=== PATIENT | female | born 1945 ===

== ENCOUNTER 2023-08-04 17:44 | Inpatient (IN) | payer MEDICARE, OTHER, SELFPAY ==
[2023-08-04 17:51] VITALS: BMI 39.3
--- NOTE | 2023-08-04 18:46 | PC.ADMIT ---
Patient admitted to S1 at 1755 via stretcher from [facility]. Patient wth PMH of HtN, afib, bradycardia and dementia. Patient anticoagulated with Eliquis. Patient reportedly has been confused for months however noted marked increase in confusion in the last few weeks. Patient has been talking to people who are not there, trying to go to the third floor of the house when there are only 2 floors and was packing to leave house because the people in the house told me I had to. Patient alert and oriented to person, place and time. Able to state she is here for help. Presents as pleasant and cooperative. Dressed in hospital attire. Well groomed. Patient vital signs taken. BP high 200/84. HR at 44. Patient tearful at times due to recent of . Oriented to unit. Med rec done.
[2023-08-04 19:27] VITALS: BP 148/87; PULSE 51; RESP 18; TEMP 36.5; O2SAT 98
[2023-08-04 20:00] VITALS: BP 129/87; PULSE 58; RESP 18; TEMP 36.6; O2SAT 98
[2023-08-04 20:20] LABS: Creatinine Clr Calc Pharmacy 57.3; Estimated Glomerular Filt Rate 55
[2023-08-04] MEDS: Apixaban 5 MG TABLET PO (20:46)
[2023-08-05 08:00] VITALS: BP 131/62; PULSE 59; RESP 18; TEMP 36.4; O2SAT 97
[2023-08-05 08:16] LABS: Estimated Average Glucose 120 mg/dL; Hemoglobin A1C 148.9347 umol/L; Hemoglobin A1c % 5.8 % (<6.0)
[2023-08-05 08:33] LABS: Alanine Aminotransferase 22 U/L (0-31); Albumin Level 4.3 g/dL (3.5-5.0); Alkaline Phosphatase 67 U/L (39-117); Anion Gap 12 (12-20); Aspartate Amino Transferase 22 U/L (5-31); Bilirubin Total 0.8 mg/dL (0.0-1.0); Blood Urea Nitrogen 11 mg/dL (9-16); Calcium 10.7 mg/dL (8.4-10.2); Carbon Dioxide 27 mmol/L (22-29); Chloride 104 mmol/L (96-108); Cholesterol 184 mg/dL (<200); Creatinine Clr Calc Pharmacy 61.7; Estimated Glomerular Filt Rate > 60; Glucose Fasting 110 mg/dL (60-99); HDL Cholesterol 61 mg/dL (>40); LDL Cholesterol Calculated 104 mg/dL (<100); Potassium 4.4 mmol/L (3.3-5.1); Sodium 139 mmol/L (135-145); Total Protein 7.7 g/dL (6.5-8.0); Triglycerides 97 mg/dL (<150)
[2023-08-05] MEDS: Apixaban 5 MG TABLET PO ×2 (08:44→20:34)
[2023-08-05] MEDS: PARoxetine HCL 10 MG TABLET PO (08:44)
[2023-08-05] MEDS: ARIPiprazole 2 MG TABLET PO (08:44)
[2023-08-05] MEDS: Sotalol HCL 80 MG TABLET PO (08:44)
[2023-08-05] MEDS: lisinopriL 5 MG TABLET PO (08:44)
[2023-08-05] MEDS: Spironolactone 25 MG TABLET PO (08:46)
[2023-08-05 08:57] LABS: Folate 3.3 ng/mL (> or = 4.0); Vitamin B12 446 pg/mL (200-900)
--- NOTE | 2023-08-05 09:23 | P.CONHOSP_ITS ---
History of Present Illness Data of Consult Service Date: 08/05/23 Requesting physician: Saravanan Thomason Primary Care Provider: Unknown Physician HPI Reason for consult: Medical H and P 77-year-old female with history of paroxysmal atrial fibrillation anticoagulated with Eliquis on sotalol, hypertension, unspecified dementia admitted to Geriatric Psychiatry from [facility] with consult placed to hospitalist service for medical H&P. While in the ED, hematology studies unremarkable. Renal function baseline, electrolyte levels normal. Ammonia level undetectable. Hepatic function within normal limits. Urinalysis not indicative of infection. Urine tox screen negative. Head CT without acute intracranial abnormality but shows evidence of chronic microvascular disease. EKG shows sinus bradycardia which is noted to be chronic, rate [address]/T-wave abnormalities. She tells me she has been experiencing intermittent right-sided chest pressure but is currently asymptomatic. She has been following with Dr. Lino at [facility] who recently ordered a Holter monitor the patient is unaware of results. Suspect this was likely ordered related to her chronic bradycardia to evaluate for significant pauses. However, patient denies having had any symptoms of lightheadedness, shortness of breath, vision changes, or syncope. She currently has no complaints. Review of Systems 2 Review of Systems: General: No fevers, malaise, unintentional weight loss HEENT: No blurred vision, diplopia. No sore throat, nasal congestion, rhinorrhea, sinus pain, ear pain Cardiovascular: No chest pain, palpitations, or leg edema Respiratory: No shortness of breath, wheezing, cough GI: No abdominal pain, nausea, vomiting, diarrhea, constipation, melena, hematochezia : No dysuria, hematuria, increased urinary frequency, decreased urinary output MSK: No myalgia, back pain Neuro: No headaches, weakness, paresthesias Skin: No rashes or lesions [facility] Medical History Dementia Hypertension Chronic anticoagulation Atrial fibrillation Social History Currently Displaying Signs/Symptoms of Drug Intoxication Withdrawal: No Advance Directives: No Advance Directives Information Provided: Yes Do you have thoughts of harming others: None Do you have a plan to hurt others: No Plan Meds Allergies Allergy/AdvReac Type Severity Reaction Status Date / Time latex AdvReac Unknown Verified 08/04/23 17:51 levofloxacin AdvReac Unknown Verified 08/04/23 17:51 Sulfa (Sulfonamide AdvReac Unknown Verified 08/04/23 17:51 Antibiotics) Active Medications: Current Medications Acetaminophen (Acetaminophen 325 Mg Tablet) 650 mg PO Q6H PRN PRN Reason: Headache/Pain Mild Scale (1-3) Al Hydroxide/Mg Hydroxide (Magnesium Hydrox/Alum Hydrox 30 Ml Oral.Susp) 30 ml PO Q6H PRN PRN Reason: Heartburn/Nausea Apixaban (Apixaban 5 Mg Tablet) 5 mg PO BID [facility] Last Admin: 08/05/23 08:44 Dose: 5 mg Aripiprazole (Aripiprazole 2 Mg Tablet) 2 mg PO DAILY [facility] Last Admin: 08/05/23 08:44 Dose: 2 mg Lisinopril (Lisinopril 5 Mg Tablet) 5 mg PO DAILY [facility]; Protocol Last Admin: 08/05/23 08:44 Dose: 5 mg Magnesium Hydroxide (Milk Of Magnesia 30 Ml Oral.Susp) 30 ml PO DAILY PRN PRN Reason: Constipation Paroxetine HCl (Paroxetine Hcl 10 Mg Tablet) 10 mg PO DAILY [facility] Last Admin: 08/05/23 08:44 Dose: 10 mg Sotalol HCl (Sotalol Hcl 80 Mg Tablet) 80 mg PO DAILY@0800 [facility] Last Admin: 08/05/23 08:44 Dose: 80 mg Spironolactone (Spironolactone 25 Mg Tablet) 25 mg PO DAILY [facility]; Protocol Last Admin: 08/05/23 08:46 Dose: 25 mg Trazodone HCl (Trazodone Hcl 50 Mg Tablet) 50 mg PO BEDTIME MRX1 PRN PRN Reason: Insomnia Home Medications ?Medication ?Instructions ?Recorded ?Confirmed ?Last Taken ?Type Abilify 2 mg PO 1XD 08/04/23 08/04/23 08/03/23 21:00 History 2 mg apixaban 5 mg tablet (Eliquis) 5 mg PO BID 08/04/23 08/04/23 08/04/23 09:00 History lisinopril 5 mg tablet 5 mg PO DAILY 08/04/23 08/04/23 08/04/23 09:00 History 5 mg paroxetine HCl 10 mg tablet 10 mg PO DAILY 08/04/23 08/04/23 08/04/23 09:00 History sotalol 80 mg tablet 80 mg PO DAILY 08/04/23 08/04/23 08/04/23 09:00 History spironolactone 25 mg tablet 25 mg PO DAILY 08/04/23 08/04/23 08/04/23 09:00 History Physical Exam 2 Vital Signs and Narrative: Vital Signs: Last Vital Signs Temp 97.9 F 08/04/23 20:00 Pulse 58 08/04/23 20:00 Resp 18 08/04/23 20:00 BP 129/87 08/04/23 20:00 Pulse Ox 98 08/04/23 20:00 O2 Del Method Room Air 08/04/23 20:00 BMI result Body Mass Index 39.3 Constitutional - Awake and Alert, No apparent distress Eyes - PERRLA, EOMI Cardiovascular - S1S2, RRR, No edema Respiratory - Normal lung expansion, Normal respiratory effort, No respiratory distress, CTA bilaterally Gastrointestinal - NT / ND; +BS; No rebound or guarding - No CVA tenderness Extremities - no calf tenderness bilaterally, no swelling Musculoskeletal - Normal inspection, normal ROM Skin - Warm/Dry Neurological - Alert & oriented x3, CN II-XII in tact, 5/5 strength BUE and BLE Psychological - Appropriate affect Results Labs 08/05/23 08:03 Labs: Laboratory Results - last 24 hr 08/04/23 08/05/23 19:57 08:03 Anion Gap 12 Estim Creat Clear Calc 57.3 61.7 Estimated GFR 55 > 60 Fasting Glucose 110 H Estimat Average Glucose 120 Hemoglobin A1c % 5.8 Calcium 10.7 H Total Bilirubin 0.8 AST 22 ALT 22 Alkaline Phosphatase 67 Total Protein 7.7 Albumin 4.3 Triglycerides 97 Cholesterol 184 LDL Cholesterol, Calc 104 H HDL Cholesterol 61 Vitamin B12 446 Folate 3.3 L TSH 1.50 Assessment and Plan (1) Routine medical exam: Status: Acute Plan 77-year-old female with history of paroxysmal atrial fibrillation anticoagulated with Eliquis on sotalol, hypertension, unspecified dementia admitted to Geriatric Psychiatry from [facility] with consult placed to hospitalist service for medical H&P. #Mood disorder/dementia/grief -plan per Psychiatry # paroxysmal atrial fibrillation -chronic bradycardia-asymptomatic -continue sotalol for rhythm control -continue Eliquis for anticoagulation # chronic bradycardia -recently had Holter monitor performed by [facility] -mild, asymtomatic, continue sotalol #htn -bp controlled -continue lisinopril, spironolactone #Chronic intermittent chest pain -follows with PVC, no known history of CAD/MD -EKG without acute changes, currently asymtomatic -no intervention recommended at this time unless patient develops symptoms- notify hospitalist -continue eliquis Thank you for allowing me to participate in this consult. Signing off at this time. Please do not hesitate to call for further questions or for abdelrahman cute medical issues.
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
[2023-08-05 20:00] VITALS: BP 138/63; PULSE 53; RESP 16; TEMP 36.1; O2SAT 97
[2023-08-06 08:00] VITALS: BP 124/56; PULSE 65; RESP 18; TEMP 36.1; O2SAT 98
[2023-08-06] MEDS: Spironolactone 25 MG TABLET PO (08:35)
[2023-08-06] MEDS: ARIPiprazole 2 MG TABLET PO (08:35)
[2023-08-06] MEDS: Apixaban 5 MG TABLET PO ×2 (08:36→21:14)
[2023-08-06] MEDS: PARoxetine HCL 10 MG TABLET PO (08:36)
[2023-08-06] MEDS: lisinopriL 5 MG TABLET PO (08:36)
[2023-08-06] MEDS: Sotalol HCL 80 MG TABLET PO (08:36)
[2023-08-06] MEDS: risperiDONE 0.5 MG TABLET PO (14:42)
--- NOTE | 2023-08-06 14:51 | HO.PSYCHPN ---
Subjective Subjective Date of Service: 08/06/23 Reason For Visit: Unspecified anxiety disorder Subjective Notes: Conditional Voluntary Interim History: Pt slept through the night. she continues to present with some paranoid ideas and asks this jingle writer to speak softly as she is worried others may here as she is not sure she is safe here. No SI/HI. She friendly with roommate. visible on the unit. no behavioral concerns. Review of Systems Review of Systems Pt denies chest pain, any pain. No GI symptoms- no diarrhea, no constipation, denies abdominal pain Mental Status Exam Mental Status Exam Narrative: Appearance: wearing casual clothing, good hygiene, in NAD Behavior: cooperative and pleasant Psychomotor: no agitation or retardation noted Speech: clear, normal rate/rhythm/volume, spontaneous TP: some derailment, noted difficulty finding words TC: feeling safer here Mood: okay Affect: congruent, appropriately tearful when talking about her SI: denies HI: denies VH/AH: hearing voices of woman Delusions: paranoid delusions Insight/judgment: impaired x 2. memory/cog: alert, oriented to place, not so much as situation, not to month or year. Diagnostics Vital Signs (24Hr): Vital Signs - 24 hr 08/05/23 20:00 08/06/23 08:00 Temperature 96.9 F 97.0 F Pulse Rate 53 65 Respiratory Rate 16 18 Blood Pressure 138/63 124/56 L Pulse Oximetry 97 98 Oxygen Delivery Method Room Air Room Air BMI result Body Mass Index 39.3 Labs 08/05/23 08:03 Labs: Laboratory Results - last 48 hr 08/04/23 08/05/23 19:57 08:03 Sodium 139 Potassium 4.4 Chloride 104 Carbon Dioxide 27 Anion Gap 12 BUN 11 Creatinine 0.98 0.91 Estim Creat Clear Calc 57.3 61.7 Estimated GFR 55 > 60 Fasting Glucose 110 H Estimat Average Glucose 120 Hemoglobin A1c % 5.8 Calcium 10.7 H Total Bilirubin 0.8 AST 22 ALT 22 Alkaline Phosphatase 67 Total Protein 7.7 Albumin 4.3 Triglycerides 97 Cholesterol 184 LDL Cholesterol, Calc 104 H HDL Cholesterol 61 Vitamin B12 446 Folate 3.3 L TSH 1.50 Medications Medications Current Medications Acetaminophen (Acetaminophen 325 Mg Tablet) 650 mg PO Q6H PRN PRN Reason: Headache/Pain Mild Scale (1-3) Al Hydroxide/Mg Hydroxide (Magnesium Hydrox/Alum Hydrox 30 Ml Oral.Susp) 30 ml PO Q6H PRN PRN Reason: Heartburn/Nausea Apixaban (Apixaban 5 Mg Tablet) 5 mg PO BID [facility] Last Admin: 08/06/23 08:36 Dose: 5 mg Lisinopril (Lisinopril 5 Mg Tablet) 5 mg PO DAILY [facility]; Protocol Last Admin: 08/06/23 08:36 Dose: 5 mg Magnesium Hydroxide (Milk Of Magnesia 30 Ml Oral.Susp) 30 ml PO DAILY PRN PRN Reason: Constipation Paroxetine HCl (Paroxetine Hcl 10 Mg Tablet) 10 mg PO DAILY [facility] Last Admin: 08/06/23 08:36 Dose: 10 mg Risperidone (Risperidone 0.5 Mg Tablet) 0.5 mg PO BID [facility] Last Admin: 08/06/23 14:42 Dose: 0.5 mg Sotalol HCl (Sotalol Hcl 80 Mg Tablet) 80 mg PO DAILY@0800 [facility] Last Admin: 08/06/23 08:36 Dose: 80 mg Spironolactone (Spironolactone 25 Mg Tablet) 25 mg PO DAILY [facility]; Protocol Last Admin: 08/06/23 08:35 Dose: 25 mg Trazodone HCl (Trazodone Hcl 50 Mg Tablet) 50 mg PO BEDTIME MRX1 PRN PRN Reason: Insomnia Allergies Allergies Allergy/AdvReac Type Severity Reaction Status Date / Time latex AdvReac Unknown Verified 08/04/23 17:51 levofloxacin AdvReac Unknown Verified 08/04/23 17:51 Sulfa (Sulfonamide AdvReac Unknown Verified 08/04/23 17:51 Antibiotics) Assessment & Plan Assessment & Plan (1) Major neurocognitive disorder: Status: Acute Code(s): F03.90 - Unspecified dementia, unspecified severity, without behavioral disturbance, psychotic disturbance, mood disturbance, and anxiety Plan Mrs. Haddad is a 77 year-old woman with dementia, appears alzheimer's type or mixed etiology. Pt was brought to [facility] ED due to increase visual and auditory hallucinatinos of woman telling her to go places and paranoid ideas. Unfortunately, after pt was brought to ED, her and HCP unexpectedly at home. Her brother, Adam ([phone]) who is very familiar with her situation, can be her new HCP and pt does show understanding/capacity to appoint HCP. She continues to present with some paranoid delusions, AH. May consider switching abilify to risperidone as it may be more effective in targeting symptoms. PLAN 1. will try risperidone 1mg po BID. demetrius cortez Reason for continued inpatient stay Substantial Risk for: inability to function Time Spent With Patient Time: Total time managing care of this patient today ____ minutes.
[2023-08-06 20:00] VITALS: BP 125/58; PULSE 100; RESP 18; TEMP 36.1; O2SAT 97
[2023-08-07 08:50] VITALS: BP 136/60; PULSE 54; RESP 14; TEMP 35.7; O2SAT 95
[2023-08-07] MEDS: PARoxetine HCL 10 MG TABLET PO (08:50)
[2023-08-07] MEDS: Spironolactone 25 MG TABLET PO (08:50)
[2023-08-07] MEDS: risperiDONE 0.5 MG TABLET PO ×2 (08:50→20:01)
[2023-08-07] MEDS: Apixaban 5 MG TABLET PO ×2 (08:50→20:01)
[2023-08-07] MEDS: Sotalol HCL 80 MG TABLET PO (08:51)
[2023-08-07] MEDS: lisinopriL 5 MG TABLET PO (08:51)
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
[2023-08-07 20:00] VITALS: BP 136/63; PULSE 61; RESP 18; TEMP 36.3; O2SAT 97
[2023-08-08 08:12] VITALS: BP 127/60; PULSE 61; RESP 16; TEMP 36.5; O2SAT 98
[2023-08-08] MEDS: Sotalol HCL 80 MG TABLET PO (08:13)
[2023-08-08] MEDS: lisinopriL 5 MG TABLET PO (08:13)
[2023-08-08] MEDS: PARoxetine HCL 10 MG TABLET PO (08:13)
[2023-08-08] MEDS: Apixaban 5 MG TABLET PO ×2 (08:16→20:31)
[2023-08-08] MEDS: Spironolactone 25 MG TABLET PO (08:16)
[2023-08-08] MEDS: risperiDONE 0.5 MG TABLET PO ×2 (08:16→20:31)
--- NOTE | 2023-08-08 10:11 | P.PNPSI_ITS ---
Subjective Subjective Date of Service: 08/08/23 Reason For Visit: Unspecified anxiety disorder Subjective Notes: Conditional Voluntary Healthcare Proxy: Yes Interim History: Pt slept through the night. Pt without combative or aggressive behaviors. She presents slightly less paranoid and suspicious, yesterday pt was reporting someone tried to kidnap her and she was worried about who could hear her. She denies SI/HI She is appropriately tearful about recent of . MOCA , ACL 3.4 severe cognitive impairment. Medication Compliance: Yes Review of Systems Review of Systems Pt denies chest pain, any pain. No GI symptoms- no diarrhea, no constipation, denies abdominal pain Mental Status Exam Mental Status Exam Narrative: Appearance: wearing casual clothing, good hygiene, in NAD Behavior: cooperative and pleasant Psychomotor: no agitation or retardation noted Speech: clear, normal rate/rhythm/volume, spontaneous TP: some derailment, noted difficulty finding words TC: feeling safer here Mood: okay Affect: congruent, appropriately tearful when talking about her SI: denies HI: denies VH/AH: hearing voices of woman Delusions: paranoid delusions Insight/judgment: impaired x 2. memory/cog: alert, oriented to place, month, year, not so much situation. MOCA on 08/08/23 most impairments in executive function, language fluency, abstraction, attention, language repetition. Diagnostics Vital Signs (24Hr): Vital Signs - 24 hr 08/07/23 20:00 08/08/23 08:12 Temperature 97.3 F 97.7 F Pulse Rate 61 61 Respiratory Rate 18 16 Blood Pressure 136/63 127/60 Pulse Oximetry 97 98 Oxygen Delivery Method Room Air Room Air BMI result Body Mass Index 39.3 Labs 08/05/23 08:03 Medications Medications Current Medications Acetaminophen (Acetaminophen 325 Mg Tablet) 650 mg PO Q6H PRN PRN Reason: Headache/Pain Mild Scale (1-3) Al Hydroxide/Mg Hydroxide (Magnesium Hydrox/Alum Hydrox 30 Ml Oral.Susp) 30 ml PO Q6H PRN PRN Reason: Heartburn/Nausea Apixaban (Apixaban 5 Mg Tablet) 5 mg PO BID [facility] Last Admin: 08/08/23 08:16 Dose: 5 mg Lisinopril (Lisinopril 5 Mg Tablet) 5 mg PO DAILY [facility]; Protocol Last Admin: 08/08/23 08:13 Dose: 5 mg Magnesium Hydroxide (Milk Of Magnesia 30 Ml Oral.Susp) 30 ml PO DAILY PRN PRN Reason: Constipation Paroxetine HCl (Paroxetine Hcl 10 Mg Tablet) 10 mg PO DAILY [facility] Last Admin: 08/08/23 08:13 Dose: 10 mg Risperidone (Risperidone 0.5 Mg Tablet) 0.5 mg PO BID [facility] Last Admin: 08/08/23 08:16 Dose: 0.5 mg Sotalol HCl (Sotalol Hcl 80 Mg Tablet) 80 mg PO DAILY@0800 [facility] Last Admin: 08/08/23 08:13 Dose: 80 mg Spironolactone (Spironolactone 25 Mg Tablet) 25 mg PO DAILY [facility]; Protocol Last Admin: 08/08/23 08:16 Dose: 25 mg Trazodone HCl (Trazodone Hcl 50 Mg Tablet) 50 mg PO BEDTIME MRX1 PRN PRN Reason: Insomnia Allergies Allergies Allergy/AdvReac Type Severity Reaction Status Date / Time latex AdvReac Unknown Verified 08/04/23 17:51 levofloxacin AdvReac Unknown Verified 08/04/23 17:51 Sulfa (Sulfonamide AdvReac Unknown Verified 08/04/23 17:51 Antibiotics) Assessment & Plan Assessment & Plan (1) Major neurocognitive disorder: Status: Acute Code(s): F03.90 - Unspecified dementia, unspecified severity, without behavioral disturbance, psychotic disturbance, mood disturbance, and anxiety Plan Mrs. Haddad is a 77 year-old woman with dementia, appears alzheimer's type or mixed etiology. Pt was brought to [facility] ED due to increase visual and auditory hallucinatinos of woman telling her to go places and paranoid ideas. Unfortunately, after pt was brought to ED, her and HCP unexpectedly at home. Her brother, Adam ([phone]) who is very familiar with her situation, can be her new HCP and pt does show understanding/capacity to appoint HCP. She continues to present with some paranoid delusions, AH. May consider switching abilify to risperidone as it may be more effective in targeting symptoms. PLAN 1. continue risperidone 1mg po BID. Reason for continued inpatient stay Substantial Risk for: inability to function Time Spent With Patient Time: Total time managing care of this patient today ____ minutes.
[2023-08-08 20:00] VITALS: BP 129/71; PULSE 60; RESP 16; TEMP 36.3; O2SAT 99
--- NOTE | 2023-08-09 | ECG_ITS ---
Test Reason : palpitations Blood Pressure : / mmHG Vent. Rate : 046 BPM Atrial Rate : 046 BPM P-R Int : 154 ms QRS Dur : 088 ms QT Int : 420 ms P-R-T Axes : 045 004 016 degrees QTc Int : 367 ms Sinus bradycardia Otherwise normal ECG No previous ECGs available Referred By: Jaci Zavala Electronically Signed By:LYNN BURDEN
[2023-08-09 08:00] VITALS: BP 160/72; PULSE 64; RESP 18; TEMP 34; O2SAT 18
[2023-08-09] MEDS: Spironolactone 25 MG TABLET PO (08:13)
[2023-08-09] MEDS: Apixaban 5 MG TABLET PO ×2 (08:14→20:10)
[2023-08-09] MEDS: risperiDONE 0.5 MG TABLET PO ×3 (08:14→20:10)
[2023-08-09] MEDS: lisinopriL 5 MG TABLET PO (08:14)
[2023-08-09] MEDS: PARoxetine HCL 10 MG TABLET PO (08:14)
[2023-08-09] MEDS: Sotalol HCL 80 MG TABLET PO (08:14)
--- NOTE | 2023-08-09 09:09 | HO.PSYCHPN ---
Subjective Subjective Date of Service: 08/09/23 Reason For Visit: Unspecified anxiety disorder Subjective Notes: Conditional Voluntary Interim History: pt slept most of the night. Pt presents as more paranoid stating that there is a family here that is trying to kidnap her. She appears more anxious and fearful. She is eating well. Visible on the unit, social with select peers. No behavioral concerns. Meeting with her brother to discuss advanced dementia, need for 24/7 care. Will increase risperidone for psychosis and paranoia. Diagnostics Vital Signs (24Hr): Vital Signs - 24 hr 08/08/23 20:00 08/09/23 08:00 Temperature 97.4 F 93.2 F L Pulse Rate 60 64 Respiratory Rate 16 18 Blood Pressure 129/71 160/72 H Pulse Oximetry 99 18 L Oxygen Delivery Method Room Air Room Air BMI result Body Mass Index 39.3 Labs 08/05/23 08:03 Medications Medications Current Medications Acetaminophen (Acetaminophen 325 Mg Tablet) 650 mg PO Q6H PRN PRN Reason: Headache/Pain Mild Scale (1-3) Al Hydroxide/Mg Hydroxide (Magnesium Hydrox/Alum Hydrox 30 Ml Oral.Susp) 30 ml PO Q6H PRN PRN Reason: Heartburn/Nausea Apixaban (Apixaban 5 Mg Tablet) 5 mg PO BID [facility] Last Admin: 08/09/23 08:14 Dose: 5 mg Lisinopril (Lisinopril 5 Mg Tablet) 5 mg PO DAILY [facility]; Protocol Last Admin: 08/09/23 08:14 Dose: 5 mg Magnesium Hydroxide (Milk Of Magnesia 30 Ml Oral.Susp) 30 ml PO DAILY PRN PRN Reason: Constipation Paroxetine HCl (Paroxetine Hcl 10 Mg Tablet) 10 mg PO DAILY [facility] Last Admin: 08/09/23 08:14 Dose: 10 mg Risperidone (Risperidone 0.5 Mg Tablet) 0.5 mg PO BID [facility] Last Admin: 08/09/23 08:14 Dose: 0.5 mg Sotalol HCl (Sotalol Hcl 80 Mg Tablet) 80 mg PO DAILY@0800 [facility] Last Admin: 08/09/23 08:14 Dose: 80 mg Spironolactone (Spironolactone 25 Mg Tablet) 25 mg PO DAILY [facility]; Protocol Last Admin: 08/09/23 08:13 Dose: 25 mg Trazodone HCl (Trazodone Hcl 50 Mg Tablet) 50 mg PO BEDTIME MRX1 PRN PRN Reason: Insomnia Allergies Allergies Allergy/AdvReac Type Severity Reaction Status Date / Time latex AdvReac Unknown Verified 08/04/23 17:51 levofloxacin AdvReac Unknown Verified 08/04/23 17:51 Sulfa (Sulfonamide AdvReac Unknown Verified 08/04/23 17:51 Antibiotics) Assessment & Plan Assessment & Plan (1) Major neurocognitive disorder: Status: Acute Code(s): F03.90 - Unspecified dementia, unspecified severity, without behavioral disturbance, psychotic disturbance, mood disturbance, and anxiety Plan Mrs. Haddad is a 77 year-old woman with dementia, appears alzheimer's type or mixed etiology. Pt was brought to [facility] ED due to increase visual and auditory hallucinatinos of woman telling her to go places and paranoid ideas. Unfortunately, after pt was brought to ED, her and HCP unexpectedly at home. Her brother, Adam ([phone]) who is very familiar with her situation, can be her new HCP and pt does show understanding/capacity to appoint HCP. She continues to present with some paranoid delusions, AH. May consider switching abilify to risperidone as it may be more effective in targeting symptoms. PLAN 1. Increase risperidone 1mg po TID. Reason for continued inpatient stay Substantial Risk for: inability to function Time Spent With Patient Time: Total time managing care of this patient today ____ minutes.
[2023-08-09 12:05] VITALS: BP 113/66; PULSE 55; RESP 18; TEMP 36.4; O2SAT 100
[2023-08-09 20:00] VITALS: BP 125/58; PULSE 60; RESP 18; TEMP 36.6; O2SAT 96
[2023-08-10 07:00] VITALS: BMI 38.4
[2023-08-10 08:17] VITALS: BP 140/65; PULSE 54; RESP 18; TEMP 36.1; O2SAT 98
[2023-08-10] MEDS: Apixaban 5 MG TABLET PO ×2 (08:36→20:53)
[2023-08-10] MEDS: risperiDONE 0.5 MG TABLET PO ×3 (08:36→20:53)
[2023-08-10] MEDS: lisinopriL 5 MG TABLET PO (08:36)
[2023-08-10] MEDS: Sotalol HCL 80 MG TABLET PO (08:36)
[2023-08-10] MEDS: Spironolactone 25 MG TABLET PO (08:36)
--- NOTE | 2023-08-10 09:16 | HO.PSYCHPN ---
Subjective Subjective Date of Service: 08/10/23 Reason For Visit: Unspecified anxiety disorder Subjective Notes: Conditional Voluntary Interim History: pt slept most of the night. Pt continues to report that family is trying to kidnap her and someone had sent a car for her to get in. She is whispering at times. No SI/HI. she is visible on the unit, no behavioral concerns. Review of Systems Review of Systems Pt denies chest pain, any pain. No GI symptoms- no diarrhea, no constipation, denies abdominal pain Mental Status Exam Mental Status Exam Narrative: Appearance: wearing casual clothing, good hygiene, in NAD Behavior: cooperative and pleasant Psychomotor: no agitation or retardation noted Speech: clear, normal rate/rhythm/volume, spontaneous TP: some derailment, noted difficulty finding words TC: feeling safer here Mood: okay Affect: congruent, appropriately tearful when talking about her SI: denies HI: denies VH/AH: hearing voices of woman Delusions: paranoid delusions Insight/judgment: impaired x 2. memory/cog: alert, oriented to place, month, year, not so much situation. MOCA on 08/08/23 most impairments in executive function, language fluency, abstraction, attention, language repetition. Diagnostics Vital Signs (24Hr): Vital Signs - 24 hr 08/09/23 12:05 08/09/23 20:00 08/10/23 08:17 Temperature 97.5 F 97.9 F 97.0 F Pulse Rate 55 60 54 Respiratory Rate 18 18 18 Blood Pressure 113/66 125/58 L 140/65 H Pulse Oximetry 100 96 98 Oxygen Delivery Method Room Air Room Air Room Air BMI result Body Mass Index 39.3 Labs 08/05/23 08:03 Medications Medications Current Medications Acetaminophen (Acetaminophen 325 Mg Tablet) 650 mg PO Q6H PRN PRN Reason: Headache/Pain Mild Scale (1-3) Al Hydroxide/Mg Hydroxide (Magnesium Hydrox/Alum Hydrox 30 Ml Oral.Susp) 30 ml PO Q6H PRN PRN Reason: Heartburn/Nausea Apixaban (Apixaban 5 Mg Tablet) 5 mg PO BID [facility] Last Admin: 08/10/23 08:36 Dose: 5 mg Lisinopril (Lisinopril 5 Mg Tablet) 5 mg PO DAILY [facility]; Protocol Last Admin: 08/10/23 08:36 Dose: 5 mg Magnesium Hydroxide (Milk Of Magnesia 30 Ml Oral.Susp) 30 ml PO DAILY PRN PRN Reason: Constipation Risperidone (Risperidone 0.5 Mg Tablet) 0.5 mg PO TID [facility] Last Admin: 08/10/23 08:36 Dose: 0.5 mg Sotalol HCl (Sotalol Hcl 80 Mg Tablet) 80 mg PO DAILY@0800 [facility] Last Admin: 08/10/23 08:36 Dose: 80 mg Spironolactone (Spironolactone 25 Mg Tablet) 25 mg PO DAILY [facility]; Protocol Last Admin: 08/10/23 08:36 Dose: 25 mg Trazodone HCl (Trazodone Hcl 50 Mg Tablet) 50 mg PO BEDTIME MRX1 PRN PRN Reason: Insomnia Allergies Allergies Allergy/AdvReac Type Severity Reaction Status Date / Time latex AdvReac Unknown Verified 08/04/23 17:51 levofloxacin AdvReac Unknown Verified 08/04/23 17:51 Sulfa (Sulfonamide AdvReac Unknown Verified 08/04/23 17:51 Antibiotics) Assessment & Plan Assessment & Plan (1) Major neurocognitive disorder: Status: Acute Code(s): F03.90 - Unspecified dementia, unspecified severity, without behavioral disturbance, psychotic disturbance, mood disturbance, and anxiety Plan Mrs. Haddad is a 77 year-old woman with dementia, appears alzheimer's type or mixed etiology. Pt was brought to [facility] ED due to increase visual and auditory hallucinatinos of woman telling her to go places and paranoid ideas. Unfortunately, after pt was brought to ED, her and HCP unexpectedly at home. Her brother, Adam ([phone]) who is very familiar with her situation, can be her new HCP and pt does show understanding/capacity to appoint HCP. She continues to present with some paranoid delusions, AH. May consider switching abilify to risperidone as it may be more effective in targeting symptoms. PLAN 1. continue risperidone 0.5mg po TID. Reason for continued inpatient stay Substantial Risk for: inability to function Time Spent With Patient Time: Total time managing care of this patient today ____ minutes.
[2023-08-10 20:00] VITALS: BP 130/62; PULSE 59; RESP 18; TEMP 36; O2SAT 99
[2023-08-10] MEDS: traZODone HCL 50 MG TABLET PO (20:53)
[2023-08-11 08:23] VITALS: BP 128/62; PULSE 54; RESP 17; TEMP 36.3; O2SAT 99
[2023-08-11 08:26] VITALS: BP 128/62
[2023-08-11] MEDS: risperiDONE 0.5 MG TABLET PO ×3 (08:26→20:57)
[2023-08-11] MEDS: Apixaban 5 MG TABLET PO ×2 (08:26→20:57)
[2023-08-11] MEDS: lisinopriL 5 MG TABLET PO (08:26)
[2023-08-11 08:27] VITALS: BP 128/62
[2023-08-11] MEDS: Sotalol HCL 80 MG TABLET PO (08:27)
[2023-08-11] MEDS: Spironolactone 25 MG TABLET PO (08:27)
[2023-08-11 20:00] VITALS: BP 138/80; PULSE 52; RESP 18; TEMP 36; O2SAT 99
[2023-08-12 08:00] VITALS: BP 128/61; PULSE 57; RESP 18; TEMP 36.5; O2SAT 95
[2023-08-12 08:57] VITALS: BP 128/61
[2023-08-12] MEDS: risperiDONE 0.5 MG TABLET PO ×3 (08:57→20:26)
[2023-08-12] MEDS: Sotalol HCL 80 MG TABLET PO (08:57)
[2023-08-12] MEDS: lisinopriL 5 MG TABLET PO (08:57)
[2023-08-12] MEDS: Spironolactone 25 MG TABLET PO (08:57)
[2023-08-12] MEDS: Apixaban 5 MG TABLET PO ×2 (08:58→20:26)
--- NOTE | 2023-08-12 10:05 | P.PNPSI_ITS ---
Subjective Subjective Date of Service: 08/12/23 Reason For Visit: Unspecified anxiety disorder Subjective Notes: Conditional Voluntary Interim History: The nursing staff reported the patient had been common pleasant, she denies auditory or visual hallucinations. Her brother visited yesterday and apparently he reported the patient still hearing voices but she denies it. She had been social, attended to groups, slept 7 hours. On interview the patient denies auditory hallucinations but she looks internally preoccupied. Mental Status Exam Mental Status Exam Patient Appearance: Appropriate Patient Orientation: Person and Situation Level of Consciousness: Awake Patient Behavior: Guarded Mood Description: Withdrawn Affect Description: Constricted Patient Cognition Impaired: Yes Ability to Follow Directions: Good Speech Pattern: Clear Hallucinations: Auditory Delusions: Ideas of Reference Thought Process: Distracted and Slowed Thinking Thought Content: positive for [place] and positive for Poverty of Content Judgement: Poor Diagnostics Vital Signs (24Hr): Vital Signs - 24 hr 08/11/23 20:00 08/12/23 08:00 08/12/23 08:57 Temperature 96.8 F 97.7 F Pulse Rate 52 57 Respiratory Rate 18 18 Blood Pressure 138/80 128/61 128/61 Pulse Oximetry 99 95 Oxygen Delivery Method Room Air Room Air 08/12/23 08:57 Temperature Pulse Rate Respiratory Rate Blood Pressure 128/61 Pulse Oximetry Oxygen Delivery Method BMI result Body Mass Index 38.4 Labs 08/05/23 08:03 Medications Medications Current Medications Acetaminophen (Acetaminophen 325 Mg Tablet) 650 mg PO Q6H PRN PRN Reason: Headache/Pain Mild Scale (1-3) Al Hydroxide/Mg Hydroxide (Magnesium Hydrox/Alum Hydrox 30 Ml Oral.Susp) 30 ml PO Q6H PRN PRN Reason: Heartburn/Nausea Apixaban (Apixaban 5 Mg Tablet) 5 mg PO BID [facility] Last Admin: 08/12/23 08:58 Dose: 5 mg Lisinopril (Lisinopril 5 Mg Tablet) 5 mg PO DAILY [facility]; Protocol Last Admin: 08/12/23 08:57 Dose: 5 mg Magnesium Hydroxide (Milk Of Magnesia 30 Ml Oral.Susp) 30 ml PO DAILY PRN PRN Reason: Constipation Risperidone (Risperidone 0.5 Mg Tablet) 0.5 mg PO TID [facility] Last Admin: 08/12/23 08:57 Dose: 0.5 mg Sotalol HCl (Sotalol Hcl 80 Mg Tablet) 80 mg PO DAILY@0800 [facility] Last Admin: 08/12/23 08:57 Dose: 80 mg Spironolactone (Spironolactone 25 Mg Tablet) 25 mg PO DAILY [facility]; Protocol Last Admin: 08/12/23 08:57 Dose: 25 mg Trazodone HCl (Trazodone Hcl 50 Mg Tablet) 50 mg PO BEDTIME MRX1 PRN PRN Reason: Insomnia Last Admin: 08/10/23 20:53 Dose: 50 mg Allergies Allergies Allergy/AdvReac Type Severity Reaction Status Date / Time latex AdvReac Unknown Verified 08/04/23 17:51 levofloxacin AdvReac Unknown Verified 08/04/23 17:51 Sulfa (Sulfonamide AdvReac Unknown Verified 08/04/23 17:51 Antibiotics) Assessment & Plan Assessment & Plan (1) Major neurocognitive disorder: Status: Acute Code(s): F03.90 - Unspecified dementia, unspecified severity, without behavioral disturbance, psychotic disturbance, mood disturbance, and anxiety Plan Mrs. Haddad is a 77 year-old woman with dementia, appears alzheimer's type or mixed etiology. Pt was brought to [facility] ED due to increase visual and auditory hallucinatinos of woman telling her to go places and paranoid ideas. Unfortunately, after pt was brought to ED, her and HCP unexpectedly at home. Her brother, Adam ([phone]) who is very familiar with her situation, can be her new HCP and pt does show understanding/capacity to appoint HCP. She continues to present with some paranoid delusions, AH. May consider switching abilify to risperidone as it may be more effective in targeting symptoms. PLAN 1. continue risperidone 0.5mg po TID. 2. Continue with same treatment Reason for continued inpatient stay Substantial Risk for: inability to function, rapid decompensation and med/psych decompensation Time Spent With Patient Time: Total time managing care of this patient today __20__ minutes.
[2023-08-12] MEDS: OLANZapine 5 MG TABLET PO (16:42)
--- NOTE | 2023-08-12 16:51 | PC.NURSE ---
Patient reported anxiety and was noted to be tearful stating, I didn't mean to kill the babies. Provider notified. 5 mg Zyprexa administered. Effect pending.
[2023-08-12 20:00] VITALS: PULSE 68; RESP 18; TEMP 36.8; O2SAT 99
[2023-08-12] MEDS: traZODone HCL 50 MG TABLET PO (20:26)
[2023-08-12 20:35] VITALS: BP 108/53; PULSE 52
[2023-08-13 08:00] VITALS: BP 137/61; PULSE 67; RESP 18; TEMP 36.3; O2SAT 98
[2023-08-13 08:19] VITALS: BP 137/61
[2023-08-13] MEDS: risperiDONE 0.5 MG TABLET PO ×3 (08:19→20:23)
[2023-08-13] MEDS: Spironolactone 25 MG TABLET PO (08:19)
[2023-08-13 08:20] VITALS: BP 137/61
[2023-08-13] MEDS: Sotalol HCL 80 MG TABLET PO (08:20)
[2023-08-13] MEDS: lisinopriL 5 MG TABLET PO (08:20)
[2023-08-13] MEDS: Apixaban 5 MG TABLET PO ×2 (08:20→20:23)
--- NOTE | 2023-08-13 09:55 | HO.PSYCHPN ---
Subjective Subjective Date of Service: 08/13/23 Reason For Visit: Unspecified anxiety disorder Subjective Notes: Conditional Voluntary Interim History: The nursing staff reported the patient had been calm in the morning, she had been medication compliant. She denies auditory hallucinations but she was seen by the staff speaking to herself. She slept all night. On interview the patient denies auditory hallucinations. Mental Status Exam Mental Status Exam Patient Appearance: Appropriate Patient Orientation: Person Level of Consciousness: Awake Patient Behavior: Guarded and Cooperative Mood Description: Withdrawn Affect Description: Constricted Patient Cognition Impaired: Yes Ability to Follow Directions: Good Speech Pattern: Clear Hallucinations: None Delusions: Paranoid Ideation and Ideas of Reference Thought Process: Distracted and Slowed Thinking Thought Content: positive for [place] and positive for Circumstantial Judgement: Poor Diagnostics Vital Signs (24Hr): Vital Signs - 24 hr 08/12/23 20:00 08/12/23 20:35 08/13/23 08:00 Temperature 98.3 F 97.3 F Pulse Rate 68 52 67 Respiratory Rate 18 18 Blood Pressure 108/53 L 137/61 Pulse Oximetry 99 98 Oxygen Delivery Method Room Air Room Air 08/13/23 08:19 08/13/23 08:20 Temperature Pulse Rate Respiratory Rate Blood Pressure 137/61 137/61 Pulse Oximetry Oxygen Delivery Method BMI result Body Mass Index 38.4 Labs 08/05/23 08:03 Medications Medications Current Medications Acetaminophen (Acetaminophen 325 Mg Tablet) 650 mg PO Q6H PRN PRN Reason: Headache/Pain Mild Scale (1-3) Al Hydroxide/Mg Hydroxide (Magnesium Hydrox/Alum Hydrox 30 Ml Oral.Susp) 30 ml PO Q6H PRN PRN Reason: Heartburn/Nausea Apixaban (Apixaban 5 Mg Tablet) 5 mg PO BID [facility] Last Admin: 08/13/23 08:20 Dose: 5 mg Lisinopril (Lisinopril 5 Mg Tablet) 5 mg PO DAILY [facility]; Protocol Last Admin: 08/13/23 08:20 Dose: 5 mg Magnesium Hydroxide (Milk Of Magnesia 30 Ml Oral.Susp) 30 ml PO DAILY PRN PRN Reason: Constipation Risperidone (Risperidone 0.5 Mg Tablet) 0.5 mg PO TID [facility] Last Admin: 08/13/23 08:19 Dose: 0.5 mg Sotalol HCl (Sotalol Hcl 80 Mg Tablet) 80 mg PO DAILY@0800 [facility] Last Admin: 08/13/23 08:20 Dose: 80 mg Spironolactone (Spironolactone 25 Mg Tablet) 25 mg PO DAILY [facility]; Protocol Last Admin: 08/13/23 08:19 Dose: 25 mg Trazodone HCl (Trazodone Hcl 50 Mg Tablet) 50 mg PO BEDTIME MRX1 PRN PRN Reason: Insomnia Last Admin: 08/12/23 20:26 Dose: 50 mg Allergies Allergies Allergy/AdvReac Type Severity Reaction Status Date / Time latex AdvReac Unknown Verified 08/04/23 17:51 levofloxacin AdvReac Unknown Verified 08/04/23 17:51 Sulfa (Sulfonamide AdvReac Unknown Verified 08/04/23 17:51 Antibiotics) Assessment & Plan Assessment & Plan (1) Major neurocognitive disorder: Status: Acute Code(s): F03.90 - Unspecified dementia, unspecified severity, without behavioral disturbance, psychotic disturbance, mood disturbance, and anxiety Plan Mrs. Haddad is a 77 year-old woman with dementia, appears alzheimer's type or mixed etiology. Pt was brought to [facility] ED due to increase visual and auditory hallucinatinos of woman telling her to go places and paranoid ideas. Unfortunately, after pt was brought to ED, her and HCP unexpectedly at home. Her brother, Adam ([phone]) who is very familiar with her situation, can be her new HCP and pt does show understanding/capacity to appoint HCP. She continues to present with some paranoid delusions, AH. May consider switching abilify to risperidone as it may be more effective in targeting symptoms. PLAN 1. continue risperidone 0.5mg po TID. 2. Continue with same treatment Reason for continued inpatient stay Substantial Risk for: inability to function, rapid decompensation and med/psych decompensation Time Spent With Patient Time: Total time managing care of this patient today __20__ minutes.
[2023-08-13 20:00] VITALS: BP 112/51; PULSE 58; RESP 18; TEMP 36.2; O2SAT 98
[2023-08-14 07:43] VITALS: BP 116/56; PULSE 56; RESP 16; O2SAT 98
[2023-08-14] MEDS: Apixaban 5 MG TABLET PO ×2 (07:46→20:06)
[2023-08-14] MEDS: Spironolactone 25 MG TABLET PO (07:47)
[2023-08-14 08:00] VITALS: BP 116/56
[2023-08-14] MEDS: lisinopriL 5 MG TABLET PO (08:00)
[2023-08-14] MEDS: Sotalol HCL 80 MG TABLET PO (08:00)
[2023-08-14] MEDS: risperiDONE 0.5 MG TABLET PO (08:01)
--- NOTE | 2023-08-14 15:22 | HO.PSYCHPN ---
Subjective Subjective Date of Service: 08/14/23 Reason For Visit: Unspecified anxiety disorder Subjective Notes: Conditional Voluntary Healthcare Proxy: Yes Interim History: Pt slept most of the night. Pt although slightly calmer, continues to report that she hears a voice telling her that she is going to be kidnapped. She reports she does not see their face... stating they don't want anyone to see their faces. She reports feeling somewhat anxious even here because she states at times does not know who to trust. She denies SI/HI. Review of Systems Review of Systems Pt denies chest pain, any pain. No GI symptoms- no diarrhea, no constipation, denies abdominal pain Mental Status Exam Mental Status Exam Narrative: Appearance: wearing casual clothing, good hygiene, in NAD Behavior: cooperative and pleasant Psychomotor: no agitation or retardation noted Speech: clear, normal rate/rhythm/volume, spontaneous TP: some derailment, noted difficulty finding words TC: feeling safer here Mood: okay Affect: congruent, appropriately tearful when talking about her SI: denies HI: denies VH/AH: hearing voices of woman Delusions: paranoid delusions Insight/judgment: impaired x 2. memory/cog: alert, oriented to place, month, year, not so much situation. MOCA on 08/08/23 most impairments in executive function, language fluency, abstraction, attention, language repetition. Diagnostics Vital Signs (24Hr): Vital Signs - 24 hr 08/13/23 20:00 08/14/23 07:43 08/14/23 08:00 Temperature 97.2 F Pulse Rate 58 56 Respiratory Rate 18 16 Blood Pressure 112/51 L 116/56 L 116/56 L Pulse Oximetry 98 98 Oxygen Delivery Method Room Air Room Air BMI result Body Mass Index 38.4 Labs 08/05/23 08:03 Medications Medications Current Medications Acetaminophen (Acetaminophen 325 Mg Tablet) 650 mg PO Q6H PRN PRN Reason: Headache/Pain Mild Scale (1-3) Al Hydroxide/Mg Hydroxide (Magnesium Hydrox/Alum Hydrox 30 Ml Oral.Susp) 30 ml PO Q6H PRN PRN Reason: Heartburn/Nausea Apixaban (Apixaban 5 Mg Tablet) 5 mg PO BID [facility] Last Admin: 08/14/23 07:46 Dose: 5 mg Lisinopril (Lisinopril 5 Mg Tablet) 5 mg PO DAILY [facility]; Protocol Last Admin: 08/14/23 08:00 Dose: 5 mg Magnesium Hydroxide (Milk Of Magnesia 30 Ml Oral.Susp) 30 ml PO DAILY PRN PRN Reason: Constipation Risperidone (Risperidone 0.5 Mg Tablet) 0.5 mg PO TID [facility] Last Admin: 08/14/23 08:01 Dose: 0.5 mg Sotalol HCl (Sotalol Hcl 80 Mg Tablet) 80 mg PO DAILY@0800 [facility] Last Admin: 08/14/23 08:00 Dose: 80 mg Spironolactone (Spironolactone 25 Mg Tablet) 25 mg PO DAILY [facility]; Protocol Last Admin: 08/14/23 07:47 Dose: 25 mg Trazodone HCl (Trazodone Hcl 50 Mg Tablet) 50 mg PO BEDTIME MRX1 PRN PRN Reason: Insomnia Last Admin: 08/12/23 20:26 Dose: 50 mg Allergies Allergies Allergy/AdvReac Type Severity Reaction Status Date / Time latex AdvReac Unknown Verified 08/04/23 17:51 levofloxacin AdvReac Unknown Verified 08/04/23 17:51 Sulfa (Sulfonamide AdvReac Unknown Verified 08/04/23 17:51 Antibiotics) Assessment & Plan Assessment & Plan (1) Major neurocognitive disorder: Status: Acute Code(s): F03.90 - Unspecified dementia, unspecified severity, without behavioral disturbance, psychotic disturbance, mood disturbance, and anxiety Plan Mrs. Haddad is a 77 year-old woman with dementia, appears alzheimer's type or mixed etiology. Pt was brought to [facility] ED due to increase visual and auditory hallucinatinos of woman telling her to go places and paranoid ideas. Unfortunately, after pt was brought to ED, her and HCP unexpectedly at home. Her brother, Adam ([phone]) who is very familiar with her situation, can be her new HCP and pt does show understanding/capacity to appoint HCP. She continues to present with some paranoid delusions, AH. May consider switching abilify to risperidone as it may be more effective in targeting symptoms. PLAN 5/6 BP has lowered since admission, will check ortho VS. Will increase risperidone at bedtime 1mg po qhs and continue risperidone 0.5mg po BID at 8am and 1500. No behavioral concerns. updated brother of medication changes. Reason for continued inpatient stay Substantial Risk for: inability to function Time Spent With Patient Time: Total time managing care of this patient today ____ minutes.
[2023-08-14 20:00] VITALS: BP 115/59; PULSE 69; RESP 18; TEMP 36.4; O2SAT 97
[2023-08-14] MEDS: risperiDONE 1 MG TABLET PO (20:06)
--- NOTE | 2023-08-14 22:56 | ECG_ITS ---
Test Reason : CP Blood Pressure : / mmHG Vent. Rate : 069 BPM Atrial Rate : 069 BPM P-R Int : 158 ms QRS Dur : 098 ms QT Int : 386 ms P-R-T Axes : 076 026 034 degrees QTc Int : 413 ms Sinus rhythm with frequent Premature ventricular complexes Nonspecific ST abnormality Abnormal ECG When compared with ECG of 09-AUG-2023 15:16, Premature ventricular complexes are now Present Vent. rate has increased BY 23 BPM Referred By: Saravanan Thomason Electronically Signed By:Lalit Juarez
--- NOTE | 2023-08-14 23:15 | PC.NURSE ---
Patient alerted this automatic typewriter inspector that she was experiencing chest pain and pressure, radiating into her left arm and back. Vital signs obtained. T: 97.9 HR: 72 BP: 139/58 O2: 97%. Provider (Jaci Zavala) notified. EKG obtained and troponin ordered.
[2023-08-15 08:03] VITALS: BP 148/66; PULSE 63; RESP 17; TEMP 36.3; O2SAT 99
[2023-08-15 08:04] VITALS: BP 148/66
[2023-08-15] MEDS: Apixaban 5 MG TABLET PO ×2 (08:04→20:26)
[2023-08-15] MEDS: Sotalol HCL 80 MG TABLET PO (08:04)
[2023-08-15] MEDS: Spironolactone 25 MG TABLET PO (08:04)
[2023-08-15] MEDS: risperiDONE 0.5 MG TABLET PO ×2 (08:04→15:46)
[2023-08-15 08:05] VITALS: BP 148/66
[2023-08-15] MEDS: lisinopriL 5 MG TABLET PO (08:05)
--- NOTE | 2023-08-15 10:40 | HO.PSYCHPN ---
Subjective Subjective Date of Service: 08/15/23 Reason For Visit: Unspecified anxiety disorder Subjective Notes: Conditional Voluntary Interim History: Pt slept most of the night. Pt visible and attends some groups. Pt continues to talk about paranoid delusions and hearing voices of woman. No SI/HI. No aggression or combative behaviors. Review of Systems Review of Systems Pt denies chest pain, any pain. No GI symptoms- no diarrhea, no constipation, denies abdominal pain Mental Status Exam Mental Status Exam Narrative: Appearance: wearing casual clothing, good hygiene, in NAD Behavior: cooperative and pleasant Psychomotor: no agitation or retardation noted Speech: clear, normal rate/rhythm/volume, spontaneous TP: some derailment, noted difficulty finding words TC: feeling safer here Mood: okay Affect: congruent, appropriately tearful when talking about her SI: denies HI: denies VH/AH: hearing voices of woman Delusions: paranoid delusions Insight/judgment: impaired x 2. memory/cog: alert, oriented to place, month, year, not so much situation. MOCA on 08/08/23 most impairments in executive function, language fluency, abstraction, attention, language repetition. Diagnostics Vital Signs (24Hr): Vital Signs - 24 hr 08/14/23 20:00 08/15/23 08:03 08/15/23 08:04 Temperature 97.6 F 97.3 F Pulse Rate 69 63 Respiratory Rate 18 17 Blood Pressure 115/59 L 148/66 H 148/66 H Pulse Oximetry 97 99 Oxygen Delivery Method Room Air Room Air 08/15/23 08:05 Temperature Pulse Rate Respiratory Rate Blood Pressure 148/66 H Pulse Oximetry Oxygen Delivery Method BMI result Body Mass Index 38.4 Labs 08/05/23 08:03 Labs: Laboratory Results - last 48 hr 08/14/23 23:34 Troponin I High Sens 4.0 Medications Medications Current Medications Acetaminophen (Acetaminophen 325 Mg Tablet) 650 mg PO Q6H PRN PRN Reason: Headache/Pain Mild Scale (1-3) Al Hydroxide/Mg Hydroxide (Magnesium Hydrox/Alum Hydrox 30 Ml Oral.Susp) 30 ml PO Q6H PRN PRN Reason: Heartburn/Nausea Apixaban (Apixaban 5 Mg Tablet) 5 mg PO BID [facility] Last Admin: 08/15/23 08:04 Dose: 5 mg Lisinopril (Lisinopril 5 Mg Tablet) 5 mg PO DAILY [facility]; Protocol Last Admin: 08/15/23 08:05 Dose: 5 mg Magnesium Hydroxide (Milk Of Magnesia 30 Ml Oral.Susp) 30 ml PO DAILY PRN PRN Reason: Constipation Risperidone (Risperidone 0.5 Mg Tablet) 0.5 mg PO BID@0800,1500 [facility] Last Admin: 08/15/23 08:04 Dose: 0.5 mg Risperidone (Risperidone 1 Mg Tablet) 1 mg PO BEDTIME [facility] Last Admin: 08/14/23 20:06 Dose: 1 mg Sotalol HCl (Sotalol Hcl 80 Mg Tablet) 80 mg PO DAILY@0800 [facility] Last Admin: 08/15/23 08:04 Dose: 80 mg Spironolactone (Spironolactone 25 Mg Tablet) 25 mg PO DAILY [facility]; Protocol Last Admin: 08/15/23 08:04 Dose: 25 mg Trazodone HCl (Trazodone Hcl 50 Mg Tablet) 50 mg PO BEDTIME MRX1 PRN PRN Reason: Insomnia Last Admin: 08/12/23 20:26 Dose: 50 mg Allergies Allergies Allergy/AdvReac Type Severity Reaction Status Date / Time latex AdvReac Unknown Verified 08/04/23 17:51 levofloxacin AdvReac Unknown Verified 08/04/23 17:51 Sulfa (Sulfonamide AdvReac Unknown Verified 08/04/23 17:51 Antibiotics) Assessment & Plan Assessment & Plan (1) Major neurocognitive disorder: Status: Acute Code(s): F03.90 - Unspecified dementia, unspecified severity, without behavioral disturbance, psychotic disturbance, mood disturbance, and anxiety Plan Mrs. Haddad is a 77 year-old woman with dementia, appears alzheimer's type or mixed etiology. Pt was brought to [facility] ED due to increase visual and auditory hallucinatinos of woman telling her to go places and paranoid ideas. Unfortunately, after pt was brought to ED, her and HCP unexpectedly at home. Her brother, Adam ([phone]) who is very familiar with her situation, can be her new HCP and pt does show understanding/capacity to appoint HCP. She continues to present with some paranoid delusions, AH. May consider switching abilify to risperidone as it may be more effective in targeting symptoms. PLAN 5/6 BP has lowered since admission, will check ortho VS. Will increase risperidone at bedtime 1mg po qhs and continue risperidone 0.5mg po BID at 8am and 1500. No behavioral concerns. updated brother of medication changes. 08/14 continue tx. Reason for continued inpatient stay Substantial Risk for: inability to function Time Spent With Patient Time: Total time managing care of this patient today ____ minutes.
[2023-08-15 20:00] VITALS: BP 141/65; PULSE 60; RESP 16; TEMP 36.2; O2SAT 98
[2023-08-15] MEDS: risperiDONE 1 MG TABLET PO (20:26)
[2023-08-16 08:00] VITALS: BP 130/62; PULSE 68; RESP 18; TEMP 35.8; O2SAT 96
[2023-08-16] MEDS: Sotalol HCL 80 MG TABLET PO (08:46)
[2023-08-16] MEDS: Spironolactone 25 MG TABLET PO (08:47)
[2023-08-16] MEDS: risperiDONE 0.5 MG TABLET PO ×2 (08:47→15:10)
[2023-08-16] MEDS: lisinopriL 5 MG TABLET PO (08:47)
[2023-08-16] MEDS: Apixaban 5 MG TABLET PO ×2 (08:47→20:35)
--- NOTE | 2023-08-16 10:37 | P.PNPSI_ITS ---
Subjective Subjective Date of Service: 08/16/23 Reason For Visit: Unspecified anxiety disorder Subjective Notes: Conditional Voluntary Interim History: Pt slept most of the night.Pt continues to present with paranoid delusions, suspicious about some staff and hearing voices telling her that she has killed a baby and they are looking for her. She is taking medications as prescribed. VS stable. Otherwise she is visible on the unit, social with select peers. She does attend some groups. Review of Systems Review of Systems Pt denies chest pain, any pain. No GI symptoms- no diarrhea, no constipation, denies abdominal pain Mental Status Exam Mental Status Exam Narrative: Appearance: wearing casual clothing, good hygiene, in NAD Behavior: cooperative and pleasant Psychomotor: no agitation or retardation noted Speech: clear, normal rate/rhythm/volume, spontaneous TP: some derailment, noted difficulty finding words TC: feeling safer here Mood: okay Affect: congruent, appropriately tearful when talking about her SI: denies HI: denies VH/AH: hearing voices of woman Delusions: paranoid delusions Insight/judgment: impaired x 2. memory/cog: alert, oriented to place, month, year, not so much situation. MOCA on 08/08/23 most impairments in executive function, language fluency, abstraction, attention, language repetition. Diagnostics Vital Signs (24Hr): Vital Signs - 24 hr 08/15/23 20:00 08/16/23 08:00 Temperature 97.1 F 96.5 F L Pulse Rate 60 68 Respiratory Rate 16 18 Blood Pressure 141/65 H 130/62 Pulse Oximetry 98 96 Oxygen Delivery Method Room Air Room Air BMI result Body Mass Index 38.4 Labs 08/05/23 08:03 Labs: Laboratory Results - last 48 hr 08/14/23 23:34 Troponin I High Sens 4.0 Medications Medications Current Medications Acetaminophen (Acetaminophen 325 Mg Tablet) 650 mg PO Q6H PRN PRN Reason: Headache/Pain Mild Scale (1-3) Al Hydroxide/Mg Hydroxide (Magnesium Hydrox/Alum Hydrox 30 Ml Oral.Susp) 30 ml PO Q6H PRN PRN Reason: Heartburn/Nausea Apixaban (Apixaban 5 Mg Tablet) 5 mg PO BID [facility] Last Admin: 08/16/23 08:47 Dose: 5 mg Lisinopril (Lisinopril 5 Mg Tablet) 5 mg PO DAILY [facility]; Protocol Last Admin: 08/16/23 08:47 Dose: 5 mg Magnesium Hydroxide (Milk Of Magnesia 30 Ml Oral.Susp) 30 ml PO DAILY PRN PRN Reason: Constipation Risperidone (Risperidone 0.5 Mg Tablet) 0.5 mg PO BID@0800,1500 [facility] Last Admin: 08/16/23 08:47 Dose: 0.5 mg Risperidone (Risperidone 1 Mg Tablet) 1 mg PO BEDTIME [facility] Last Admin: 08/15/23 20:26 Dose: 1 mg Sotalol HCl (Sotalol Hcl 80 Mg Tablet) 80 mg PO DAILY@0800 [facility] Last Admin: 08/16/23 08:46 Dose: 80 mg Spironolactone (Spironolactone 25 Mg Tablet) 25 mg PO DAILY [facility]; Protocol Last Admin: 08/16/23 08:47 Dose: 25 mg Trazodone HCl (Trazodone Hcl 50 Mg Tablet) 50 mg PO BEDTIME MRX1 PRN PRN Reason: Insomnia Last Admin: 08/12/23 20:26 Dose: 50 mg Allergies Allergies Allergy/AdvReac Type Severity Reaction Status Date / Time latex AdvReac Unknown Verified 08/04/23 17:51 levofloxacin AdvReac Unknown Verified 08/04/23 17:51 Sulfa (Sulfonamide AdvReac Unknown Verified 08/04/23 17:51 Antibiotics) Assessment & Plan Assessment & Plan (1) Major neurocognitive disorder: Status: Acute Code(s): F03.90 - Unspecified dementia, unspecified severity, without behavioral disturbance, psychotic disturbance, mood disturbance, and anxiety Plan Mrs. Haddad is a 77 year-old woman with dementia, appears alzheimer's type or mixed etiology. Pt was brought to [facility] ED due to increase visual and auditory hallucinatinos of woman telling her to go places and paranoid ideas. Unfortunately, after pt was brought to ED, her and HCP unexpectedly at home. Her brother, Adam ([phone]) who is very familiar with her situation, can be her new HCP and pt does show understanding/capacity to appoint HCP. She continues to present with some paranoid delusions, AH. May consider switching abilify to risperidone as it may be more effective in targeting symptoms. PLAN 5/6 BP has lowered since admission, will check ortho VS. Will increase risperidone at bedtime 1mg po qhs and continue risperidone 0.5mg po BID at 8am and 1500. No behavioral concerns. updated brother of medication changes. 08/14 continue tx. 08/15 continue tx. Reason for continued inpatient stay Substantial Risk for: inability to function Time Spent With Patient Time: Total time managing care of this patient today ____ minutes.
[2023-08-16 20:00] VITALS: BP 157/68; PULSE 52; RESP 18; TEMP 36.3; O2SAT 96
[2023-08-16] MEDS: risperiDONE 1 MG TABLET PO (20:34)
[2023-08-17 07:00] VITALS: BMI 38.7
[2023-08-17 08:00] VITALS: BP 134/62; PULSE 58; RESP 18; TEMP 36.3; O2SAT 100
[2023-08-17 08:30] VITALS: BP 134/62
[2023-08-17] MEDS: Sotalol HCL 80 MG TABLET PO (08:30)
[2023-08-17] MEDS: lisinopriL 5 MG TABLET PO (08:30)
[2023-08-17] MEDS: Apixaban 5 MG TABLET PO ×2 (08:30→20:43)
[2023-08-17 08:31] VITALS: BP 134/62
[2023-08-17] MEDS: Spironolactone 25 MG TABLET PO (08:31)
[2023-08-17] MEDS: risperiDONE 0.5 MG TABLET PO ×2 (08:31→16:01)
[2023-08-17 20:00] VITALS: BP 135/65; PULSE 60; RESP 18; TEMP 36.4; O2SAT 98
[2023-08-17] MEDS: risperiDONE 1 MG TABLET PO (20:43)
--- NOTE | 2023-08-17 21:07 | P.PNPSI_ITS ---
Subjective Subjective Date of Service: 08/17/23 Reason For Visit: Unspecified anxiety disorder Subjective Notes: Conditional Voluntary Healthcare Proxy: Yes Interim History: Pt slept most of the night.Pt continues to present with paranoid delusions, suspicious about some staff and hearing voices telling her that she has killed a baby and they are looking for her. She is taking medications as prescribed. VS stable. Otherwise she is visible on the unit, social with select peers. She does attend some groups. She is eating well. No behavioral concerns. Review of Systems Review of Systems Pt denies chest pain, any pain. No GI symptoms- no diarrhea, no constipation, denies abdominal pain Mental Status Exam Mental Status Exam Narrative: Appearance: wearing casual clothing, good hygiene, in NAD Behavior: cooperative and pleasant Psychomotor: no agitation or retardation noted Speech: clear, normal rate/rhythm/volume, spontaneous TP: some derailment, noted difficulty finding words TC: feeling safer here Mood: okay Affect: congruent, appropriately tearful when talking about her SI: denies HI: denies VH/AH: hearing voices of woman Delusions: paranoid delusions Insight/judgment: impaired x 2. memory/cog: alert, oriented to place, month, year, not so much situation. MOCA on 08/08/23 most impairments in executive function, language fluency, abstraction, attention, language repetition. Diagnostics Vital Signs (24Hr): Vital Signs - 24 hr 08/17/23 08:00 08/17/23 08:30 08/17/23 08:31 Temperature 97.4 F Pulse Rate 58 Respiratory Rate 18 Blood Pressure 134/62 134/62 134/62 Pulse Oximetry 100 Oxygen Delivery Method Room Air BMI result Body Mass Index 38.7 Labs 08/05/23 08:03 Medications Medications Current Medications Acetaminophen (Acetaminophen 325 Mg Tablet) 650 mg PO Q6H PRN PRN Reason: Headache/Pain Mild Scale (1-3) Al Hydroxide/Mg Hydroxide (Magnesium Hydrox/Alum Hydrox 30 Ml Oral.Susp) 30 ml PO Q6H PRN PRN Reason: Heartburn/Nausea Apixaban (Apixaban 5 Mg Tablet) 5 mg PO BID [facility] Last Admin: 08/17/23 20:43 Dose: 5 mg Lisinopril (Lisinopril 5 Mg Tablet) 5 mg PO DAILY [facility]; Protocol Last Admin: 08/17/23 08:30 Dose: 5 mg Magnesium Hydroxide (Milk Of Magnesia 30 Ml Oral.Susp) 30 ml PO DAILY PRN PRN Reason: Constipation Risperidone (Risperidone 0.5 Mg Tablet) 0.5 mg PO BID@0800,1500 [facility] Last Admin: 08/17/23 16:01 Dose: 0.5 mg Risperidone (Risperidone 1 Mg Tablet) 1 mg PO BEDTIME [facility] Last Admin: 08/17/23 20:43 Dose: 1 mg Sotalol HCl (Sotalol Hcl 80 Mg Tablet) 80 mg PO DAILY@0800 [facility] Last Admin: 08/17/23 08:30 Dose: 80 mg Spironolactone (Spironolactone 25 Mg Tablet) 25 mg PO DAILY [facility]; Protocol Last Admin: 08/17/23 08:31 Dose: 25 mg Trazodone HCl (Trazodone Hcl 50 Mg Tablet) 50 mg PO BEDTIME MRX1 PRN PRN Reason: Insomnia Last Admin: 08/12/23 20:26 Dose: 50 mg Allergies Allergies Allergy/AdvReac Type Severity Reaction Status Date / Time latex AdvReac Unknown Verified 08/04/23 17:51 levofloxacin AdvReac Unknown Verified 08/04/23 17:51 Sulfa (Sulfonamide AdvReac Unknown Verified 08/04/23 17:51 Antibiotics) Assessment & Plan Assessment & Plan (1) Major neurocognitive disorder: Status: Acute Code(s): F03.90 - Unspecified dementia, unspecified severity, without behavioral disturbance, psychotic disturbance, mood disturbance, and anxiety Plan Mrs. Haddad is a 77 year-old woman with dementia, appears alzheimer's type or mixed etiology. Pt was brought to [facility] ED due to increase visual and auditory hallucinatinos of woman telling her to go places and paranoid ideas. Unfortunately, after pt was brought to ED, her and HCP unexpectedly at home. Her brother, Adam ([phone]) who is very familiar with her situation, can be her new HCP and pt does show understanding/capacity to appoint HCP. She continues to present with some paranoid delusions, AH. May consider switching abilify to risperidone as it may be more effective in targeting symptoms. PLAN 5/6 BP has lowered since admission, will check ortho VS. Will increase risperidone at bedtime 1mg po qhs and continue risperidone 0.5mg po BID at 8am and 1500. No behavioral concerns. updated brother of medication changes. 08/14 continue tx. 08/15 continue tx. 08/16 continue tx. Reason for continued inpatient stay Substantial Risk for: inability to function Time Spent With Patient Time: Total time managing care of this patient today ____ minutes.
[2023-08-18 08:00] VITALS: BP 115/69; PULSE 65; RESP 18; TEMP 36.2; O2SAT 97
[2023-08-18 08:42] VITALS: BP 115/69
[2023-08-18] MEDS: lisinopriL 5 MG TABLET PO (08:42)
[2023-08-18] MEDS: risperiDONE 0.5 MG TABLET PO ×2 (08:42→14:05)
[2023-08-18] MEDS: Sotalol HCL 80 MG TABLET PO (08:42)
[2023-08-18] MEDS: Apixaban 5 MG TABLET PO ×2 (08:42→21:47)
[2023-08-18] MEDS: Spironolactone 25 MG TABLET PO (08:42)
--- NOTE | 2023-08-18 10:48 | P.PNPSI_ITS ---
Subjective Subjective Date of Service: 08/18/23 Reason For Visit: Unspecified anxiety disorder Subjective Notes: Conditional Voluntary Interim History: Pt slept through the night. She has been visible on the unit. She continues to present with paranoid delusions, slightly calmer. She has limited insight into extend of cognitive impairment and tells this telegraphic typewriter operator chief that she thinks she can care for herself. She is confused at times as to why she is here and may make remarks such as can I go outside for Jennifer? No behavioral concerns. Review of Systems Review of Systems Pt denies chest pain, any pain. No GI symptoms- no diarrhea, no constipation, denies abdominal pain Mental Status Exam Mental Status Exam Narrative: Appearance: wearing casual clothing, good hygiene, in NAD Behavior: cooperative and pleasant Psychomotor: no agitation or retardation noted Speech: clear, normal rate/rhythm/volume, spontaneous TP: some derailment, noted difficulty finding words TC: feeling safer here Mood: okay Affect: congruent, appropriately tearful when talking about her SI: denies HI: denies VH/AH: hearing voices of woman Delusions: paranoid delusions Insight/judgment: impaired x 2. memory/cog: alert, oriented to place, month, year, not so much situation. MOCA on 08/08/23 most impairments in executive function, language fluency, abstraction, attention, language repetition. Diagnostics Vital Signs (24Hr): Vital Signs - 24 hr 08/17/23 20:00 08/18/23 08:00 08/18/23 08:42 Temperature 97.6 F 97.2 F Pulse Rate 60 65 Respiratory Rate 18 18 Blood Pressure 135/65 115/69 115/69 Pulse Oximetry 98 97 Oxygen Delivery Method Room Air Room Air 08/18/23 08:42 Temperature Pulse Rate Respiratory Rate Blood Pressure 115/69 Pulse Oximetry Oxygen Delivery Method BMI result Body Mass Index 38.7 Labs 08/05/23 08:03 Medications Medications Current Medications Acetaminophen (Acetaminophen 325 Mg Tablet) 650 mg PO Q6H PRN PRN Reason: Headache/Pain Mild Scale (1-3) Al Hydroxide/Mg Hydroxide (Magnesium Hydrox/Alum Hydrox 30 Ml Oral.Susp) 30 ml PO Q6H PRN PRN Reason: Heartburn/Nausea Apixaban (Apixaban 5 Mg Tablet) 5 mg PO BID [facility] Last Admin: 08/18/23 08:42 Dose: 5 mg Lisinopril (Lisinopril 5 Mg Tablet) 5 mg PO DAILY [facility]; Protocol Last Admin: 08/18/23 08:42 Dose: 5 mg Magnesium Hydroxide (Milk Of Magnesia 30 Ml Oral.Susp) 30 ml PO DAILY PRN PRN Reason: Constipation Risperidone (Risperidone 0.5 Mg Tablet) 0.5 mg PO BID@0800,1500 [facility] Last Admin: 08/18/23 08:42 Dose: 0.5 mg Risperidone (Risperidone 1 Mg Tablet) 1 mg PO BEDTIME [facility] Last Admin: 08/17/23 20:43 Dose: 1 mg Sotalol HCl (Sotalol Hcl 80 Mg Tablet) 80 mg PO DAILY@0800 [facility] Last Admin: 08/18/23 08:42 Dose: 80 mg Spironolactone (Spironolactone 25 Mg Tablet) 25 mg PO DAILY [facility]; Protocol Last Admin: 08/18/23 08:42 Dose: 25 mg Trazodone HCl (Trazodone Hcl 50 Mg Tablet) 50 mg PO BEDTIME MRX1 PRN PRN Reason: Insomnia Last Admin: 08/12/23 20:26 Dose: 50 mg Allergies Allergies Allergy/AdvReac Type Severity Reaction Status Date / Time latex AdvReac Unknown Verified 08/04/23 17:51 levofloxacin AdvReac Unknown Verified 08/04/23 17:51 Sulfa (Sulfonamide AdvReac Unknown Verified 08/04/23 17:51 Antibiotics) Assessment & Plan Assessment & Plan (1) Major neurocognitive disorder: Status: Acute Code(s): F03.90 - Unspecified dementia, unspecified severity, without behavioral disturbance, psychotic disturbance, mood disturbance, and anxiety Plan Mrs. Haddad is a 77 year-old woman with dementia, appears alzheimer's type or mixed etiology. Pt was brought to [facility] ED due to increase visual and auditory hallucinatinos of woman telling her to go places and paranoid ideas. Unfortunately, after pt was brought to ED, her and HCP unexpectedly at home. Her brother, Adam ([phone]) who is very familiar with her situation, can be her new HCP and pt does show understanding/capacity to appoint HCP. She continues to present with some paranoid delusions, AH. May consider switching abilify to risperidone as it may be more effective in targeting symptoms. PLAN 08/13 BP has lowered since admission, will check ortho VS. Will increase risperidone at bedtime 1mg po qhs and continue risperidone 0.5mg po BID at 8am and 1500. No behavioral concerns. updated brother of medication changes. 08/14 continue tx. 08/15 continue tx. 08/16 continue tx. 08/17 continue tx. Reason for continued inpatient stay Substantial Risk for: inability to function Time Spent With Patient Time: Total time managing care of this patient today ____ minutes.
[2023-08-18] MEDS: Milk of Magnesia 30 ML ORAL.SUSP PO (14:05)
--- NOTE | 2023-08-18 14:19 | PC.NURSE ---
Patient medicated with MOM for c/o constipation. Will continue to monitor.
[2023-08-18 20:00] VITALS: BP 109/55; PULSE 55; RESP 16; TEMP 36.6; O2SAT 98
[2023-08-18] MEDS: risperiDONE 1 MG TABLET PO (21:47)
[2023-08-18] MEDS: traZODone HCL 50 MG TABLET PO (21:47)
[2023-08-19 08:00] VITALS: BP 119/61; PULSE 57; RESP 16; O2SAT 98
[2023-08-19 08:05] VITALS: BP 119/61
[2023-08-19] MEDS: Sotalol HCL 80 MG TABLET PO (08:05)
[2023-08-19] MEDS: Spironolactone 25 MG TABLET PO (08:05)
[2023-08-19] MEDS: risperiDONE 0.5 MG TABLET PO ×2 (08:05→14:33)
[2023-08-19 08:06] VITALS: BP 119/61
[2023-08-19] MEDS: lisinopriL 5 MG TABLET PO (08:06)
[2023-08-19] MEDS: Apixaban 5 MG TABLET PO ×2 (08:06→20:42)
--- NOTE | 2023-08-19 14:36 | P.PNPSI_ITS ---
Subjective Subjective Date of Service: 08/19/23 Reason For Visit: Unspecified anxiety disorder Subjective Notes: Conditional Voluntary Interim History: Patient cooperative anxious not overly agitated she is aware her recently became tearful the patient is aware that she has been having cognitive impairment is asking for help states she had seen Dr. Olguin patient has had psychotic symptoms for an extended period of time Mental Status Exam Mental Status Exam Narrative: Appearance: wearing casual clothing, good hygiene, in NAD Behavior: cooperative and pleasant Psychomotor: no agitation or retardation noted Speech: clear, normal rate/rhythm/volume, spontaneous TP: some derailment, noted difficulty finding words TC: feeling safer here Mood: okay Affect: congruent, appropriately tearful when talking about her SI: denies HI: denies VH/AH: hearing voices of woman Delusions: paranoid delusions Insight/judgment: impaired x 2. memory/cog: alert, oriented to place, month, year, not so much situation. MOCA on 08/08/23 most impairments in executive function, language fluency, abstraction, attention, language repetition. Diagnostics Vital Signs (24Hr): Vital Signs - 24 hr 08/18/23 20:00 08/19/23 08:00 08/19/23 08:05 Temperature 97.8 F Pulse Rate 55 57 Respiratory Rate 16 16 Blood Pressure 109/55 L 119/61 119/61 Pulse Oximetry 98 98 Oxygen Delivery Method Room Air Room Air 08/19/23 08:06 Temperature Pulse Rate Respiratory Rate Blood Pressure 119/61 Pulse Oximetry Oxygen Delivery Method BMI result Body Mass Index 38.7 Labs 08/05/23 08:03 Medications Medications Current Medications Acetaminophen (Acetaminophen 325 Mg Tablet) 650 mg PO Q6H PRN PRN Reason: Headache/Pain Mild Scale (1-3) Al Hydroxide/Mg Hydroxide (Magnesium Hydrox/Alum Hydrox 30 Ml Oral.Susp) 30 ml PO Q6H PRN PRN Reason: Heartburn/Nausea Apixaban (Apixaban 5 Mg Tablet) 5 mg PO BID [facility] Last Admin: 08/19/23 08:06 Dose: 5 mg Lisinopril (Lisinopril 5 Mg Tablet) 5 mg PO DAILY [facility]; Protocol Last Admin: 08/19/23 08:06 Dose: 5 mg Magnesium Hydroxide (Milk Of Magnesia 30 Ml Oral.Susp) 30 ml PO DAILY PRN PRN Reason: Constipation Last Admin: 08/18/23 14:05 Dose: 30 ml Risperidone (Risperidone 0.5 Mg Tablet) 0.5 mg PO BID@0800,1500 [facility] Last Admin: 08/19/23 14:33 Dose: 0.5 mg Risperidone (Risperidone 1 Mg Tablet) 1 mg PO BEDTIME [facility] Last Admin: 08/18/23 21:47 Dose: 1 mg Sotalol HCl (Sotalol Hcl 80 Mg Tablet) 80 mg PO DAILY@0800 [facility] Last Admin: 08/19/23 08:05 Dose: 80 mg Spironolactone (Spironolactone 25 Mg Tablet) 25 mg PO DAILY [facility]; Protocol Last Admin: 08/19/23 08:05 Dose: 25 mg Trazodone HCl (Trazodone Hcl 50 Mg Tablet) 50 mg PO BEDTIME MRX1 PRN PRN Reason: Insomnia Last Admin: 08/18/23 21:47 Dose: 50 mg Allergies Allergies Allergy/AdvReac Type Severity Reaction Status Date / Time latex AdvReac Unknown Verified 08/04/23 17:51 levofloxacin AdvReac Unknown Verified 08/04/23 17:51 Sulfa (Sulfonamide AdvReac Unknown Verified 08/04/23 17:51 Antibiotics) Assessment & Plan Assessment & Plan (1) Major neurocognitive disorder: Status: Acute Code(s): F03.90 - Unspecified dementia, unspecified severity, without behavioral disturbance, psychotic disturbance, mood disturbance, and anxiety Plan Mrs. Haddad is a 77 year-old woman with dementia, appears alzheimer's type or mixed etiology. Pt was brought to [facility] ED due to increase visual and auditory hallucinatinos of woman telling her to go places and paranoid ideas. Unfortunately, after pt was brought to ED, her and HCP unexpectedly at home. Her brother, Adam ([phone]) who is very familiar with her situation, can be her new HCP and pt does show understanding/capacity to appoint HCP. She continues to present with some paranoid delusions, AH. May consider switching abilify to risperidone as it may be more effective in targeting symptoms. PLAN 5/6 BP has lowered since admission, will check ortho VS. Will increase risperidone at bedtime 1mg po qhs and continue risperidone 0.5mg po BID at 8am and 1500. No behavioral concerns. updated brother of medication changes. 5/7 continue tx. 08/15 continue tx. 08/16 continue tx. 08/17 continue tx. 08/19/2023 Continue Risperdal patient continues to have some auditory hallucinations less intrusive Reason for continued inpatient stay Substantial Risk for: harm to self and rapid decompensation Time Spent With Patient Time: Total time managing care of this patient today ____ minutes.
[2023-08-19 20:00] VITALS: BP 114/56; PULSE 57; RESP 16; TEMP 36.2; O2SAT 97
[2023-08-19] MEDS: risperiDONE 1 MG TABLET PO (20:43)
[2023-08-19] MEDS: traZODone HCL 50 MG TABLET PO (20:43)
[2023-08-20 08:00] VITALS: BP 108/54; PULSE 62; RESP 17; TEMP 36.3; O2SAT 98
[2023-08-20 08:36] VITALS: BP 108/54
[2023-08-20] MEDS: Apixaban 5 MG TABLET PO ×2 (08:36→20:34)
[2023-08-20] MEDS: Sotalol HCL 80 MG TABLET PO (08:36)
[2023-08-20] MEDS: Spironolactone 25 MG TABLET PO (08:36)
[2023-08-20] MEDS: lisinopriL 5 MG TABLET PO (08:36)
[2023-08-20] MEDS: risperiDONE 0.5 MG TABLET PO ×2 (08:36→15:07)
[2023-08-20 20:00] VITALS: BP 116/55; PULSE 53; RESP 16; TEMP 36; O2SAT 98
[2023-08-20] MEDS: Acetaminophen 325 MG TABLET 650 MG PO (20:34)
[2023-08-20] MEDS: risperiDONE 1 MG TABLET PO (20:34)
[2023-08-20] MEDS: traZODone HCL 50 MG TABLET PO (20:35)
--- NOTE | 2023-08-20 22:33 | P.PNPSI_ITS ---
Subjective Subjective Date of Service: 08/20/23 Reason For Visit: Unspecified anxiety disorder Subjective Notes: Conditional Voluntary Interim History: Patient cooperative anxious not overly agitated she is aware her recently became tearful the patient is aware that she has been having cognitive impairment is asking for help states continues to hear a voice no complaints of side effects at this time Mental Status Exam Mental Status Exam Narrative: Appearance: wearing casual clothing, good hygiene, in NAD Behavior: cooperative and pleasant Psychomotor: no agitation or retardation noted Speech: clear, normal rate/rhythm/volume, spontaneous TP: difficulty finding words TC: Wants to feel better knows she is having problems with her neurological functioning Mood: okay Affect: congruent, appropriately tearful when talking about her SI: denies HI: denies VH/AH: hearing voices of woman Delusions: paranoid delusions Insight/judgment: impaired x 2. memory/cog: alert, oriented to place, month, year, not so much situation. MOCA on 08/08/23 most impairments in executive function, language fluency, abstraction, attention, language repetition. Diagnostics Vital Signs (24Hr): Vital Signs - 24 hr 08/20/23 08:00 08/20/23 08:36 08/20/23 08:36 Temperature 97.3 F Pulse Rate 62 Respiratory Rate 17 Blood Pressure 108/54 L 108/54 L 108/54 L Pulse Oximetry 98 Oxygen Delivery Method Room Air 08/20/23 20:00 Temperature 96.8 F Pulse Rate 53 Respiratory Rate 16 Blood Pressure 116/55 L Pulse Oximetry 98 Oxygen Delivery Method Room Air BMI result Body Mass Index 38.7 Labs 08/05/23 08:03 Medications Medications Current Medications Acetaminophen (Acetaminophen 325 Mg Tablet) 650 mg PO Q6H PRN PRN Reason: Headache/Pain Mild Scale (1-3) Last Admin: 08/20/23 20:34 Dose: 650 mg Al Hydroxide/Mg Hydroxide (Magnesium Hydrox/Alum Hydrox 30 Ml Oral.Susp) 30 ml PO Q6H PRN PRN Reason: Heartburn/Nausea Apixaban (Apixaban 5 Mg Tablet) 5 mg PO BID [facility] Last Admin: 08/20/23 20:34 Dose: 5 mg Lisinopril (Lisinopril 5 Mg Tablet) 5 mg PO DAILY [facility]; Protocol Last Admin: 08/20/23 08:36 Dose: 5 mg Magnesium Hydroxide (Milk Of Magnesia 30 Ml Oral.Susp) 30 ml PO DAILY PRN PRN Reason: Constipation Last Admin: 08/18/23 14:05 Dose: 30 ml Risperidone (Risperidone 0.5 Mg Tablet) 0.5 mg PO BID@0800,1500 [facility] Last Admin: 08/20/23 15:07 Dose: 0.5 mg Risperidone (Risperidone 1 Mg Tablet) 1 mg PO BEDTIME [facility] Last Admin: 08/20/23 20:34 Dose: 1 mg Sotalol HCl (Sotalol Hcl 80 Mg Tablet) 80 mg PO DAILY@0800 [facility] Last Admin: 08/20/23 08:36 Dose: 80 mg Spironolactone (Spironolactone 25 Mg Tablet) 25 mg PO DAILY [facility]; Protocol Last Admin: 08/20/23 08:36 Dose: 25 mg Trazodone HCl (Trazodone Hcl 50 Mg Tablet) 50 mg PO BEDTIME MRX1 PRN PRN Reason: Insomnia Last Admin: 08/20/23 20:35 Dose: 50 mg Allergies Allergies Allergy/AdvReac Type Severity Reaction Status Date / Time latex AdvReac Unknown Verified 08/04/23 17:51 levofloxacin AdvReac Unknown Verified 08/04/23 17:51 Sulfa (Sulfonamide AdvReac Unknown Verified 08/04/23 17:51 Antibiotics) Assessment & Plan Assessment & Plan (1) Major neurocognitive disorder: Status: Acute Code(s): F03.90 - Unspecified dementia, unspecified severity, without behavioral disturbance, psychotic disturbance, mood disturbance, and anxiety Plan Mrs. Haddad is a 77 year-old woman with dementia, appears alzheimer's type or mixed etiology. Pt was brought to [facility] ED due to increase visual and auditory hallucinatinos of woman telling her to go places and paranoid ideas. Unfortunately, after pt was brought to ED, her and HCP unexpectedly at home. Her brother, Adam ([phone]) who is very familiar with her situation, can be her new HCP and pt does show understanding/capacity to appoint HCP. She continues to present with some paranoid delusions, AH. May consider switching abilify to risperidone as it may be more effective in targeting symptoms. PLAN 5/6 BP has lowered since admission, will check ortho VS. Will increase risperidone at bedtime 1mg po qhs and continue risperidone 0.5mg po BID at 8am and 1500. No behavioral concerns. updated brother of medication changes. 08/14 continue tx. 08/15 continue tx. 08/16 continue tx. 08/17 continue tx. 08/19/2023 Continue Risperdal patient continues to have some auditory hallucinations less intrusive 08/20/2023 Continue plan of care Reason for continued inpatient stay Substantial Risk for: inability to function and rapid decompensation Time Spent With Patient Time: Total time managing care of this patient today ____ minutes.
[2023-08-21 08:00] VITALS: BP 111/53; PULSE 63; RESP 16; TEMP 36.3; O2SAT 98
[2023-08-21 08:29] VITALS: BP 111/53
[2023-08-21] MEDS: lisinopriL 5 MG TABLET PO (08:29)
[2023-08-21 08:30] VITALS: BP 111/53
[2023-08-21] MEDS: risperiDONE 0.5 MG TABLET PO ×2 (08:30→14:47)
[2023-08-21] MEDS: Sotalol HCL 80 MG TABLET PO (08:30)
[2023-08-21] MEDS: Spironolactone 25 MG TABLET PO (08:30)
[2023-08-21] MEDS: Apixaban 5 MG TABLET PO ×2 (08:30→20:21)
--- NOTE | 2023-08-21 08:36 | HO.PSYCHPN ---
Subjective Subjective Date of Service: 08/21/23 Reason For Visit: Unspecified anxiety disorder Subjective Notes: Conditional Voluntary Interim History: Pt slept through the night. Pt taking medications as prescribed. She continues to present somewhat paranoid, states over the weekend someone was arrested here for breaking in. She reminiscences about her childhood which was tough as she left her home at younger age as she did not have good relationship with step mother at the time. She denies SI/HI. No behavioral concerns. She is pleasant on approach. Review of Systems Review of Systems Pt denies chest pain, any pain. No GI symptoms- no diarrhea, no constipation, denies abdominal pain Mental Status Exam Mental Status Exam Narrative: Appearance: wearing casual clothing, good hygiene, in NAD Behavior: cooperative and pleasant Psychomotor: no agitation or retardation noted Speech: clear, normal rate/rhythm/volume, spontaneous TP: difficulty finding words TC: Wants to feel better knows she is having problems with her neurological functioning Mood: okay Affect: congruent, appropriately tearful when talking about her SI: denies HI: denies VH/AH: hearing voices of woman Delusions: paranoid delusions Insight/judgment: impaired x 2. memory/cog: alert, oriented to place, month, year, not so much situation. MOCA on 08/08/23 13 most impairments in executive function, language fluency, abstraction, attention, language repetition. Diagnostics Vital Signs (24Hr): Vital Signs - 24 hr 08/20/23 20:00 08/21/23 08:29 08/21/23 08:30 Temperature 96.8 F Pulse Rate 53 Respiratory Rate 16 Blood Pressure 116/55 L 111/53 L 111/53 L Pulse Oximetry 98 Oxygen Delivery Method Room Air BMI result Body Mass Index 38.7 Labs 08/05/23 08:03 Medications Medications Current Medications Acetaminophen (Acetaminophen 325 Mg Tablet) 650 mg PO Q6H PRN PRN Reason: Headache/Pain Mild Scale (1-3) Last Admin: 08/20/23 20:34 Dose: 650 mg Al Hydroxide/Mg Hydroxide (Magnesium Hydrox/Alum Hydrox 30 Ml Oral.Susp) 30 ml PO Q6H PRN PRN Reason: Heartburn/Nausea Apixaban (Apixaban 5 Mg Tablet) 5 mg PO BID [facility] Last Admin: 08/21/23 08:30 Dose: 5 mg Lisinopril (Lisinopril 5 Mg Tablet) 5 mg PO DAILY [facility]; Protocol Last Admin: 08/21/23 08:29 Dose: 5 mg Magnesium Hydroxide (Milk Of Magnesia 30 Ml Oral.Susp) 30 ml PO DAILY PRN PRN Reason: Constipation Last Admin: 08/18/23 14:05 Dose: 30 ml Risperidone (Risperidone 0.5 Mg Tablet) 0.5 mg PO BID@0800,1500 [facility] Last Admin: 08/21/23 08:30 Dose: 0.5 mg Risperidone (Risperidone 1 Mg Tablet) 1 mg PO BEDTIME [facility] Last Admin: 08/20/23 20:34 Dose: 1 mg Sotalol HCl (Sotalol Hcl 80 Mg Tablet) 80 mg PO DAILY@0800 [facility] Last Admin: 08/21/23 08:30 Dose: 80 mg Spironolactone (Spironolactone 25 Mg Tablet) 25 mg PO DAILY [facility]; Protocol Last Admin: 08/21/23 08:30 Dose: 25 mg Trazodone HCl (Trazodone Hcl 50 Mg Tablet) 50 mg PO BEDTIME MRX1 PRN PRN Reason: Insomnia Last Admin: 08/20/23 20:35 Dose: 50 mg Allergies Allergies Allergy/AdvReac Type Severity Reaction Status Date / Time latex AdvReac Unknown Verified 08/04/23 17:51 levofloxacin AdvReac Unknown Verified 08/04/23 17:51 Sulfa (Sulfonamide AdvReac Unknown Verified 08/04/23 17:51 Antibiotics) Assessment & Plan Assessment & Plan (1) Major neurocognitive disorder: Status: Acute Code(s): F03.90 - Unspecified dementia, unspecified severity, without behavioral disturbance, psychotic disturbance, mood disturbance, and anxiety Plan Mrs. Haddad is a 77 year-old woman with dementia, appears alzheimer's type or mixed etiology. Pt was brought to [facility] ED due to increase visual and auditory hallucinatinos of woman telling her to go places and paranoid ideas. Unfortunately, after pt was brought to ED, her and HCP unexpectedly at home. Her brother, Adam ([phone]) who is very familiar with her situation, can be her new HCP and pt does show understanding/capacity to appoint HCP. She continues to present with some paranoid delusions, AH. May consider switching abilify to risperidone as it may be more effective in targeting symptoms. PLAN 5/6 BP has lowered since admission, will check ortho VS. Will increase risperidone at bedtime 1mg po qhs and continue risperidone 0.5mg po BID at 8am and 1500. No behavioral concerns. updated brother of medication changes. 08/14 continue tx. 08/15 continue tx. 08/16 continue tx. 08/17 continue tx. 08/19/2023 Continue Risperdal patient continues to have some auditory hallucinations less intrusive 08/20/2023 Continue plan of care 08/20 continue tx. Reason for continued inpatient stay Substantial Risk for: inability to function Time Spent With Patient Time: Total time managing care of this patient today ____ minutes.
[2023-08-21 20:00] VITALS: BP 108/56; PULSE 55; RESP 18; TEMP 36; O2SAT 96
[2023-08-21] MEDS: Acetaminophen 325 MG TABLET 650 MG PO (20:21)
[2023-08-21] MEDS: traZODone HCL 50 MG TABLET PO (20:21)
[2023-08-21] MEDS: risperiDONE 1 MG TABLET PO (20:21)
[2023-08-22 08:00] VITALS: BP 106/53; PULSE 49; RESP 18; TEMP 35.8; O2SAT 98
--- NOTE | 2023-08-22 08:43 | P.PNPSI_ITS ---
Subjective Subjective Date of Service: 08/22/23 Reason For Visit: Unspecified anxiety disorder Subjective Notes: Conditional Voluntary Healthcare Proxy: Yes Interim History: Pt slept through the night. Pt taking medications as prescribed. She tearful about her . She also reports hearing voices and worried about others trying to harm her. She denies SI/HI. No behavioral concerns. She is pleasant on approach. Review of Systems Review of Systems Pt denies chest pain, any pain. No GI symptoms- no diarrhea, no constipation, denies abdominal pain Mental Status Exam Mental Status Exam Narrative: Appearance: wearing casual clothing, good hygiene, in NAD Behavior: cooperative and pleasant Psychomotor: no agitation or retardation noted Speech: clear, normal rate/rhythm/volume, spontaneous TP: difficulty finding words TC: Wants to feel better knows she is having problems with her neurological functioning Mood: okay Affect: congruent, appropriately tearful when talking about her SI: denies HI: denies VH/AH: hearing voices of woman Delusions: paranoid delusions Insight/judgment: impaired x 2. memory/cog: alert, oriented to place, month, year, not so much situation. MOCA on 08/08/23 most impairments in executive function, language fluency, abstraction, attention, language repetition. Diagnostics Vital Signs (24Hr): Vital Signs - 24 hr 08/21/23 20:00 08/22/23 08:00 Temperature 96.8 F 96.4 F L Pulse Rate 55 49 L Respiratory Rate 18 18 Blood Pressure 108/56 L 106/53 L Pulse Oximetry 96 98 Oxygen Delivery Method Room Air Room Air BMI result Body Mass Index 38.7 Labs 08/05/23 08:03 Medications Medications Current Medications Acetaminophen (Acetaminophen 325 Mg Tablet) 650 mg PO Q6H PRN PRN Reason: Headache/Pain Mild Scale (1-3) Last Admin: 08/21/23 20:21 Dose: 650 mg Al Hydroxide/Mg Hydroxide (Magnesium Hydrox/Alum Hydrox 30 Ml Oral.Susp) 30 ml PO Q6H PRN PRN Reason: Heartburn/Nausea Apixaban (Apixaban 5 Mg Tablet) 5 mg PO BID COUNTS INCLUDE 234 BEDS AT THE [facility] Last Admin: 08/21/23 20:21 Dose: 5 mg Lisinopril (Lisinopril 5 Mg Tablet) 5 mg PO DAILY COUNTS INCLUDE 234 BEDS AT THE [facility]; Protocol Last Admin: 08/21/23 08:29 Dose: 5 mg Magnesium Hydroxide (Milk Of Magnesia 30 Ml Oral.Susp) 30 ml PO DAILY PRN PRN Reason: Constipation Last Admin: 08/18/23 14:05 Dose: 30 ml Risperidone (Risperidone 0.5 Mg Tablet) 0.5 mg PO BID@0800,1500 [facility] Last Admin: 08/21/23 14:47 Dose: 0.5 mg Risperidone (Risperidone 1 Mg Tablet) 1 mg PO BEDTIME [facility] Last Admin: 08/21/23 20:21 Dose: 1 mg Sotalol HCl (Sotalol Hcl 80 Mg Tablet) 80 mg PO DAILY@0800 [facility] Last Admin: 08/21/23 08:30 Dose: 80 mg Spironolactone (Spironolactone 25 Mg Tablet) 25 mg PO DAILY COUNTS INCLUDE 234 BEDS AT THE [facility]; Protocol Last Admin: 08/21/23 08:30 Dose: 25 mg Trazodone HCl (Trazodone Hcl 50 Mg Tablet) 50 mg PO BEDTIME MRX1 PRN PRN Reason: Insomnia Last Admin: 08/21/23 20:21 Dose: 50 mg Allergies Allergies Allergy/AdvReac Type Severity Reaction Status Date / Time latex AdvReac Unknown Verified 08/04/23 17:51 levofloxacin AdvReac Unknown Verified 08/04/23 17:51 Sulfa (Sulfonamide AdvReac Unknown Verified 08/04/23 17:51 Antibiotics) Assessment & Plan Assessment & Plan (1) Major neurocognitive disorder: Status: Acute Code(s): F03.90 - Unspecified dementia, unspecified severity, without behavioral disturbance, psychotic disturbance, mood disturbance, and anxiety Plan Mrs. Haddad is a 77 year-old woman with dementia, appears alzheimer's type or mixed etiology. Pt was brought to [facility] ED due to increase visual and auditory hallucinatinos of woman telling her to go places and paranoid ideas. Unfortunately, after pt was brought to ED, her and HCP unexpectedly at home. Her brother, Adam ([phone]) who is very familiar with her situation, can be her new HCP and pt does show understanding/capacity to appoint HCP. She continues to present with some paranoid delusions, AH. May consider switching abilify to risperidone as it may be more effective in targeting symptoms. PLAN 5/6 BP has lowered since admission, will check ortho VS. Will increase risperidone at bedtime 1mg po qhs and continue risperidone 0.5mg po BID at 8am and 1500. No behavioral concerns. updated brother of medication changes. 08/14 continue tx. 08/15 continue tx. 08/16 continue tx. 08/17 continue tx. 08/19/2023 Continue Risperdal patient continues to have some auditory hallucinations less intrusive 08/20/2023 Continue plan of care 08/20 continue tx. 08/21 continue tx. Reason for continued inpatient stay Substantial Risk for: inability to function Time Spent With Patient Time: Total time managing care of this patient today ____ minutes.
[2023-08-22] MEDS: Acetaminophen 325 MG TABLET 650 MG PO (08:50)
[2023-08-22] MEDS: Apixaban 5 MG TABLET PO ×2 (08:52→21:24)
[2023-08-22] MEDS: risperiDONE 0.5 MG TABLET PO ×2 (08:54→14:24)
[2023-08-22] MEDS: Spironolactone 25 MG TABLET PO (08:56)
[2023-08-22] MEDS: lisinopriL 5 MG TABLET PO (08:56)
[2023-08-22 20:00] VITALS: BP 136/79; PULSE 97; RESP 16; TEMP 36.1; O2SAT 95
[2023-08-22] MEDS: traZODone HCL 50 MG TABLET PO (21:24)
[2023-08-22] MEDS: risperiDONE 1 MG TABLET PO (21:24)
[2023-08-23 08:00] VITALS: BP 114/54; PULSE 57; RESP 18; TEMP 36.2; O2SAT 99
[2023-08-23] MEDS: lisinopriL 5 MG TABLET PO (08:36)
[2023-08-23] MEDS: Apixaban 5 MG TABLET PO ×2 (08:37→20:35)
[2023-08-23] MEDS: Spironolactone 25 MG TABLET PO (08:37)
[2023-08-23] MEDS: risperiDONE 0.5 MG TABLET PO ×2 (08:38→14:46)
--- NOTE | 2023-08-23 16:20 | HO.PSYCHPN ---
Subjective Subjective Date of Service: 08/23/23 Reason For Visit: Unspecified anxiety disorder Subjective Notes: Conditional Voluntary Interim History: Pt slept through the night. Pt taking medications as prescribed. She tearful about her - missing her and expressing appropriate grief.. She also reports hearing voices and worried about others trying to harm her. She denies SI/HI. No behavioral concerns. She is pleasant on approach. Review of Systems Review of Systems Pt denies chest pain, any pain. No GI symptoms- no diarrhea, no constipation, denies abdominal pain Mental Status Exam Mental Status Exam Narrative: Appearance: wearing casual clothing, good hygiene, in NAD Behavior: cooperative and pleasant Psychomotor: no agitation or retardation noted Speech: clear, normal rate/rhythm/volume, spontaneous TP: difficulty finding words TC: Wants to feel better knows she is having problems with her neurological functioning Mood: okay Affect: congruent, appropriately tearful when talking about her SI: denies HI: denies VH/AH: hearing voices of woman Delusions: paranoid delusions Insight/judgment: impaired x 2. memory/cog: alert, oriented to place, month, year, not so much situation. MOCA on 08/08/23 most impairments in executive function, language fluency, abstraction, attention, language repetition. Diagnostics Vital Signs (24Hr): Vital Signs - 24 hr 08/22/23 20:00 08/23/23 08:00 Temperature 97 F 97.2 F Pulse Rate 97 57 Respiratory Rate 16 18 Blood Pressure 136/79 114/54 L Pulse Oximetry 95 99 Oxygen Delivery Method Room Air Room Air BMI result Body Mass Index 38.7 Labs 08/05/23 08:03 Medications Medications Current Medications Acetaminophen (Acetaminophen 325 Mg Tablet) 650 mg PO Q6H PRN PRN Reason: Headache/Pain Mild Scale (1-3) Last Admin: 08/22/23 08:50 Dose: 650 mg Al Hydroxide/Mg Hydroxide (Magnesium Hydrox/Alum Hydrox 30 Ml Oral.Susp) 30 ml PO Q6H PRN PRN Reason: Heartburn/Nausea Apixaban (Apixaban 5 Mg Tablet) 5 mg PO BID [facility] Last Admin: 08/23/23 08:37 Dose: 5 mg Lisinopril (Lisinopril 5 Mg Tablet) 5 mg PO DAILY [facility]; Protocol Last Admin: 08/23/23 08:36 Dose: 5 mg Magnesium Hydroxide (Milk Of Magnesia 30 Ml Oral.Susp) 30 ml PO DAILY PRN PRN Reason: Constipation Last Admin: 08/18/23 14:05 Dose: 30 ml Risperidone (Risperidone 0.5 Mg Tablet) 0.5 mg PO BID@0800,1500 [facility] Last Admin: 08/23/23 14:46 Dose: 0.5 mg Risperidone (Risperidone 1 Mg Tablet) 1 mg PO BEDTIME [facility] Last Admin: 08/22/23 21:24 Dose: 1 mg Sotalol HCl (Sotalol Hcl 80 Mg Tablet) 80 mg PO DAILY@0800 [facility] Last Admin: 08/23/23 08:37 Dose: Not Given Spironolactone (Spironolactone 25 Mg Tablet) 25 mg PO DAILY [facility]; Protocol Last Admin: 08/23/23 08:37 Dose: 25 mg Trazodone HCl (Trazodone Hcl 50 Mg Tablet) 50 mg PO BEDTIME MRX1 PRN PRN Reason: Insomnia Last Admin: 08/22/23 21:24 Dose: 50 mg Allergies Allergies Allergy/AdvReac Type Severity Reaction Status Date / Time latex AdvReac Unknown Verified 08/04/23 17:51 levofloxacin AdvReac Unknown Verified 08/04/23 17:51 Sulfa (Sulfonamide AdvReac Unknown Verified 08/04/23 17:51 Antibiotics) Assessment & Plan Assessment & Plan (1) Major neurocognitive disorder: Status: Acute Code(s): F03.90 - Unspecified dementia, unspecified severity, without behavioral disturbance, psychotic disturbance, mood disturbance, and anxiety Plan Mrs. Haddad is a 77 year-old woman with dementia, appears alzheimer's type or mixed etiology. Pt was brought to [facility] ED due to increase visual and auditory hallucinatinos of woman telling her to go places and paranoid ideas. Unfortunately, after pt was brought to ED, her and HCP unexpectedly at home. Her brother, Adam ([phone]) who is very familiar with her situation, can be her new HCP and pt does show understanding/capacity to appoint HCP. She continues to present with some paranoid delusions, AH. May consider switching abilify to risperidone as it may be more effective in targeting symptoms. PLAN 5/6 BP has lowered since admission, will check ortho VS. Will increase risperidone at bedtime 1mg po qhs and continue risperidone 0.5mg po BID at 8am and 1500. No behavioral concerns. updated brother of medication changes. 08/14 continue tx. 08/15 continue tx. 08/16 continue tx. 08/17 continue tx. 08/19/2023 Continue Risperdal patient continues to have some auditory hallucinations less intrusive 08/20/2023 Continue plan of care 08/20 continue tx. 08/21 continue tx. 08/22 increase risperidone 1mg po daily and 2mg po qhs. Reason for continued inpatient stay Substantial Risk for: inability to function Time Spent With Patient Time: Total time managing care of this patient today ____ minutes.
[2023-08-23 20:00] VITALS: BP 140/65; PULSE 74; RESP 16; TEMP 35.6; O2SAT 98
[2023-08-23] MEDS: Milk of Magnesia 30 ML ORAL.SUSP PO (20:33)
[2023-08-23] MEDS: traZODone HCL 50 MG TABLET PO (20:35)
[2023-08-23] MEDS: risperiDONE 2 MG TABLET PO (20:35)
[2023-08-23] MEDS: Mirtazapine 15 MG TABLET PO (20:35)
[2023-08-24 07:00] VITALS: BMI 38.6
[2023-08-24 08:00] VITALS: BP 138/62; PULSE 67; RESP 18; TEMP 36.2; O2SAT 95
[2023-08-24 09:05] VITALS: BP 138/62
[2023-08-24] MEDS: lisinopriL 5 MG TABLET PO (09:05)
[2023-08-24 09:06] VITALS: BP 138/62
[2023-08-24] MEDS: Sotalol HCL 80 MG TABLET PO (09:06)
[2023-08-24] MEDS: risperiDONE 1 MG TABLET PO (09:06)
[2023-08-24] MEDS: Spironolactone 25 MG TABLET PO (09:06)
[2023-08-24] MEDS: Apixaban 5 MG TABLET PO ×2 (09:06→20:43)
[2023-08-24] MEDS: Milk of Magnesia 30 ML ORAL.SUSP PO (09:07)
--- NOTE | 2023-08-24 16:56 | P.PNPSI_ITS ---
Subjective Subjective Date of Service: 08/24/23 Reason For Visit: Unspecified anxiety disorder Subjective Notes: Conditional Voluntary Interim History: Pt slept through the night. Pt taking medications as prescribed.Some paranoid ideas about people still trying to harm her and her having to be careful. otherwise she is visible on the unit, social with peers. She denies SI/HI. No behavioral concerns. She is pleasant on approach. Review of Systems Review of Systems Pt denies chest pain, any pain. No GI symptoms- no diarrhea, no constipation, denies abdominal pain Mental Status Exam Mental Status Exam Narrative: Appearance: wearing casual clothing, good hygiene, in NAD Behavior: cooperative and pleasant Psychomotor: no agitation or retardation noted Speech: clear, normal rate/rhythm/volume, spontaneous TP: difficulty finding words TC: Wants to feel better knows she is having problems with her neurological functioning Mood: okay Affect: congruent, appropriately tearful when talking about her SI: denies HI: denies VH/AH: hearing voices of woman Delusions: paranoid delusions Insight/judgment: impaired x 2. memory/cog: alert, oriented to place, month, year, not so much situation. MOCA on 08/08/23 most impairments in executive function, language fluency, abstraction, attention, language repetition. Diagnostics Vital Signs (24Hr): Vital Signs - 24 hr 08/23/23 20:00 08/24/23 08:00 08/24/23 09:05 Temperature 96.0 F L 97.1 F Pulse Rate 74 67 Respiratory Rate 16 18 Blood Pressure 140/65 H 138/62 138/62 Pulse Oximetry 98 95 Oxygen Delivery Method Room Air Room Air 08/24/23 09:06 Temperature Pulse Rate Respiratory Rate Blood Pressure 138/62 Pulse Oximetry Oxygen Delivery Method BMI result Body Mass Index 38.6 Labs 08/05/23 08:03 Medications Medications Current Medications Acetaminophen (Acetaminophen 325 Mg Tablet) 650 mg PO Q6H PRN PRN Reason: Headache/Pain Mild Scale (1-3) Last Admin: 08/22/23 08:50 Dose: 650 mg Al Hydroxide/Mg Hydroxide (Magnesium Hydrox/Alum Hydrox 30 Ml Oral.Susp) 30 ml PO Q6H PRN PRN Reason: Heartburn/Nausea Apixaban (Apixaban 5 Mg Tablet) 5 mg PO BID [facility] Last Admin: 08/24/23 09:06 Dose: 5 mg Lisinopril (Lisinopril 5 Mg Tablet) 5 mg PO DAILY [facility]; Protocol Last Admin: 08/24/23 09:05 Dose: 5 mg Magnesium Hydroxide (Milk Of Magnesia 30 Ml Oral.Susp) 30 ml PO DAILY PRN PRN Reason: Constipation Last Admin: 08/24/23 09:07 Dose: 30 ml Mirtazapine (Mirtazapine 15 Mg Tablet) 15 mg PO BEDTIME [facility] Last Admin: 08/23/23 20:35 Dose: 15 mg Risperidone (Risperidone 1 Mg Tablet) 1 mg PO DAILY [facility] Last Admin: 08/24/23 09:06 Dose: 1 mg Risperidone (Risperidone 2 Mg Tablet) 2 mg PO BEDTIME [facility] Last Admin: 08/23/23 20:35 Dose: 2 mg Sotalol HCl (Sotalol Hcl 80 Mg Tablet) 80 mg PO DAILY@0800 [facility] Last Admin: 08/24/23 09:06 Dose: 80 mg Spironolactone (Spironolactone 25 Mg Tablet) 25 mg PO DAILY [facility]; Protocol Last Admin: 08/24/23 09:06 Dose: 25 mg Trazodone HCl (Trazodone Hcl 50 Mg Tablet) 50 mg PO BEDTIME MRX1 PRN PRN Reason: Insomnia Last Admin: 08/23/23 20:35 Dose: 50 mg Allergies Allergies Allergy/AdvReac Type Severity Reaction Status Date / Time latex AdvReac Unknown Verified 08/04/23 17:51 levofloxacin AdvReac Unknown Verified 08/04/23 17:51 Sulfa (Sulfonamide AdvReac Unknown Verified 08/04/23 17:51 Antibiotics) Assessment & Plan Assessment & Plan (1) Major neurocognitive disorder: Status: Acute Code(s): F03.90 - Unspecified dementia, unspecified severity, without behavioral disturbance, psychotic disturbance, mood disturbance, and anxiety Plan Mrs. Haddad is a 77 year-old woman with dementia, appears alzheimer's type or mixed etiology. Pt was brought to [facility] ED due to increase visual and auditory hallucinatinos of woman telling her to go places and paranoid ideas. Unfortunately, after pt was brought to ED, her and HCP unexpectedly at home. Her brother, Adam ([phone]) who is very familiar with her situation, can be her new HCP and pt does show understanding/capacity to appoint HCP. She continues to present with some paranoid delusions, AH. May consider switching abilify to risperidone as it may be more effective in targeting symptoms. PLAN 08/13 BP has lowered since admission, will check ortho VS. Will increase risperidone at bedtime 1mg po qhs and continue risperidone 0.5mg po BID at 8am and 1500. No behavioral concerns. updated brother of medication changes. 08/14 continue tx. 08/15 continue tx. 08/16 continue tx. 08/17 continue tx. 08/19/2023 Continue Risperdal patient continues to have some auditory hallucinations less intrusive 08/20/2023 Continue plan of care 08/20 continue tx. 08/21 continue tx. 08/22 increase risperidone 1mg po daily and 2mg po qhs. 08/23 continue tx. Reason for continued inpatient stay Substantial Risk for: inability to function Time Spent With Patient Time: Total time managing care of this patient today ____ minutes.
[2023-08-24 20:00] VITALS: BP 102/55; PULSE 67; RESP 18; TEMP 36.6; O2SAT 97
[2023-08-24] MEDS: traZODone HCL 50 MG TABLET PO (20:43)
[2023-08-24] MEDS: Mirtazapine 15 MG TABLET PO (20:43)
[2023-08-24] MEDS: risperiDONE 2 MG TABLET PO (20:43)
[2023-08-25 08:00] VITALS: BP 115/56; PULSE 54; RESP 16; TEMP 37; O2SAT 99
[2023-08-25 08:25] VITALS: BP 115/56
[2023-08-25] MEDS: Spironolactone 25 MG TABLET PO (08:25)
[2023-08-25] MEDS: Apixaban 5 MG TABLET PO ×2 (08:25→20:11)
[2023-08-25] MEDS: risperiDONE 1 MG TABLET PO (08:25)
[2023-08-25] MEDS: lisinopriL 5 MG TABLET PO (08:25)
--- NOTE | 2023-08-25 13:42 | P.PNPSI_ITS ---
Subjective Subjective Date of Service: 08/25/23 Reason For Visit: Unspecified anxiety disorder Subjective Notes: Conditional Voluntary Healthcare Proxy: Yes Interim History: Pt slept through the night. Pt did have episode of incontinence last evening, seemed somewhat confused. Today, she reports she had interview with one of the facilities but not sure exactly what they ask. She is less paranoid about someone trying to kidnap her. She does report episode of incontinence and does report that she has some burning. No SI/HI. Less tearful, pleasant on approach. No behavioral concerns. Review of Systems Review of Systems Pt denies chest pain, any pain. No GI symptoms- no diarrhea, no constipation, denies abdominal pain Mental Status Exam Mental Status Exam Narrative: Appearance: wearing casual clothing, good hygiene, in NAD Behavior: cooperative and pleasant Psychomotor: no agitation or retardation noted Speech: clear, normal rate/rhythm/volume, spontaneous TP: difficulty finding words TC: Wants to feel better knows she is having problems with her neurological functioning Mood: okay Affect: congruent, appropriately tearful when talking about her SI: denies HI: denies VH/AH: hearing voices of woman Delusions: paranoid delusions Insight/judgment: impaired x 2. memory/cog: alert, oriented to place, month, year, not so much situation. MOCA on 08/08/23 most impairments in executive function, language fluency, abstraction, attention, language repetition. Diagnostics Vital Signs (24Hr): Vital Signs - 24 hr 08/24/23 20:00 08/25/23 08:00 08/25/23 08:25 Temperature 97.8 F 98.6 F Pulse Rate 67 54 Respiratory Rate 18 16 Blood Pressure 102/55 L 115/56 L 115/56 L Pulse Oximetry 97 99 Oxygen Delivery Method Room Air Room Air 08/25/23 08:25 Temperature Pulse Rate Respiratory Rate Blood Pressure 115/56 L Pulse Oximetry Oxygen Delivery Method BMI result Body Mass Index 38.6 Labs 08/05/23 08:03 Medications Medications Current Medications Acetaminophen (Acetaminophen 325 Mg Tablet) 650 mg PO Q6H PRN PRN Reason: Headache/Pain Mild Scale (1-3) Last Admin: 08/22/23 08:50 Dose: 650 mg Al Hydroxide/Mg Hydroxide (Magnesium Hydrox/Alum Hydrox 30 Ml Oral.Susp) 30 ml PO Q6H PRN PRN Reason: Heartburn/Nausea Apixaban (Apixaban 5 Mg Tablet) 5 mg PO BID [facility] Last Admin: 08/25/23 08:25 Dose: 5 mg Lisinopril (Lisinopril 5 Mg Tablet) 5 mg PO DAILY [facility]; Protocol Last Admin: 08/25/23 08:25 Dose: 5 mg Magnesium Hydroxide (Milk Of Magnesia 30 Ml Oral.Susp) 30 ml PO DAILY PRN PRN Reason: Constipation Last Admin: 08/24/23 09:07 Dose: 30 ml Mirtazapine (Mirtazapine 15 Mg Tablet) 15 mg PO BEDTIME [facility] Last Admin: 08/24/23 20:43 Dose: 15 mg Risperidone (Risperidone 1 Mg Tablet) 1 mg PO DAILY [facility] Last Admin: 08/25/23 08:25 Dose: 1 mg Risperidone (Risperidone 2 Mg Tablet) 2 mg PO BEDTIME [facility] Last Admin: 08/24/23 20:43 Dose: 2 mg Sotalol HCl (Sotalol Hcl 80 Mg Tablet) 80 mg PO DAILY@0800 [facility] Last Admin: 08/25/23 08:06 Dose: Not Given Spironolactone (Spironolactone 25 Mg Tablet) 25 mg PO DAILY [facility]; Protocol Last Admin: 08/25/23 08:25 Dose: 25 mg Trazodone HCl (Trazodone Hcl 50 Mg Tablet) 50 mg PO BEDTIME MRX1 PRN PRN Reason: Insomnia Last Admin: 08/24/23 20:43 Dose: 50 mg Allergies Allergies Allergy/AdvReac Type Severity Reaction Status Date / Time latex AdvReac Unknown Verified 08/04/23 17:51 levofloxacin AdvReac Unknown Verified 08/04/23 17:51 Sulfa (Sulfonamide AdvReac Unknown Verified 08/04/23 17:51 Antibiotics) Assessment & Plan Assessment & Plan (1) Major neurocognitive disorder: Status: Acute Code(s): F03.90 - Unspecified dementia, unspecified severity, without behavioral disturbance, psychotic disturbance, mood disturbance, and anxiety Plan Mrs. Haddad is a 77 year-old woman with dementia, appears alzheimer's type or mixed etiology. Pt was brought to [facility] ED due to increase visual and auditory hallucinatinos of woman telling her to go places and paranoid ideas. Unfortunately, after pt was brought to ED, her and HCP unexpectedly at home. Her brother, Adam ([phone]) who is very familiar with her situation, can be her new HCP and pt does show understanding/capacity to appoint HCP. She continues to present with some paranoid delusions, AH. May consider switching abilify to risperidone as it may be more effective in targeting symptoms. PLAN 08/13 BP has lowered since admission, will check ortho VS. Will increase risperidone at bedtime 1mg po qhs and continue risperidone 0.5mg po BID at 8am and 1500. No behavioral concerns. updated brother of medication changes. 08/14 continue tx. 08/15 continue tx. 08/16 continue tx. 08/17 continue tx. 08/19/2023 Continue Risperdal patient continues to have some auditory hallucinations less intrusive 08/20/2023 Continue plan of care 08/20 continue tx. 08/21 continue tx. 08/22 increase risperidone 1mg po daily and 2mg po qhs. 08/23 continue tx. 08/24 ordered UA- episode of incontinence, plus pt reports burning while urinating. continue all other meds. Reason for continued inpatient stay Substantial Risk for: inability to function Time Spent With Patient Time: Total time managing care of this patient today ____ minutes.
[2023-08-25 14:36] LABS: Appearance Urine Clear; Color Urine Yellow; Glucose Urine UA Negative (Negative); Leukocyte Esterase Urine Moderate (2+) (Negative); Nitrite Urine Negative (Negative); PH 5.5 (5.0-9.0); UMIC TRIGGER UA YES; Urine Blood Negative (Negative); Urine Ketones Negative (Negative); Urine Protein Negative (Neg-Trace)
[2023-08-25 14:39] LABS: Bacteria Urine 1+ (None Seen); Hyaline Casts Urine 0-2 /LPF (0-2); RBC Urine 0-2 /HPF (0-2); Squamous Epithelial Cell Urine 0-2 /HPF (0-2); WBC Urine >50 /HPF (0-5)
[2023-08-25 20:00] VITALS: BP 121/57; PULSE 62; RESP 18; TEMP 36.2; O2SAT 98
[2023-08-25] MEDS: Mirtazapine 15 MG TABLET PO (20:10)
[2023-08-25] MEDS: risperiDONE 2 MG TABLET PO (20:11)
[2023-08-25] MEDS: traZODone HCL 50 MG TABLET PO (20:14)
[2023-08-26 08:17] VITALS: BP 144/64; PULSE 61; RESP 18; TEMP 36.2; O2SAT 96
[2023-08-26 08:45] VITALS: BP 144/64
[2023-08-26] MEDS: Spironolactone 25 MG TABLET PO (08:45)
[2023-08-26] MEDS: risperiDONE 1 MG TABLET PO (08:45)
[2023-08-26 08:46] VITALS: BP 144/64
[2023-08-26] MEDS: lisinopriL 5 MG TABLET PO (08:46)
[2023-08-26] MEDS: Apixaban 5 MG TABLET PO ×2 (08:46→20:20)
[2023-08-26] MEDS: Sotalol HCL 80 MG TABLET PO (08:48)
--- NOTE | 2023-08-26 10:17 | P.PNPSI_ITS ---
Subjective Subjective Date of Service: 08/26/23 Reason For Visit: Unspecified anxiety disorder Subjective Notes: Conditional Voluntary Interim History: Patient was seen and discussed in rounds today. Records and plans were reviewed. She continues to be confused but no behavioral issues. Eating and sleeping adequately. She does have some UTI symptoms and urinalysis is indicative. Hospitalist consult will be placed for treatment. No changes were made today Review of Systems Review of Systems Burning on urination Yes all other systems are reviewed and are negative Diagnostics Vital Signs (24Hr): Vital Signs - 24 hr 08/25/23 20:00 08/26/23 08:17 08/26/23 08:45 Temperature 97.1 F 97.2 F Pulse Rate 62 61 Respiratory Rate 18 18 Blood Pressure 121/57 L 144/64 H 144/64 H Pulse Oximetry 98 96 Oxygen Delivery Method Room Air Room Air 08/26/23 08:46 Temperature Pulse Rate Respiratory Rate Blood Pressure 144/64 H Pulse Oximetry Oxygen Delivery Method BMI result Body Mass Index 38.6 Labs 08/05/23 08:03 Labs: Laboratory Results - last 48 hr 08/25/23 14:21 Urine Color Yellow Urine Appearance Clear Urine pH 5.5 Ur Specific [place] 1.020 Urine Protein Negative Urine Glucose (UA) Negative Urine Ketones Negative Urine Blood Negative Urine Nitrite Negative Ur Leukocyte Esterase Moderate (2+) H Urine RBC 0-2 Urine WBC >50 H Ur Squamous Epith Cells 0-2 Urine Bacteria 1+ Hyaline Casts 0-2 Medications Medications Current Medications Acetaminophen (Acetaminophen 325 Mg Tablet) 650 mg PO Q6H PRN PRN Reason: Headache/Pain Mild Scale (1-3) Last Admin: 08/22/23 08:50 Dose: 650 mg Al Hydroxide/Mg Hydroxide (Magnesium Hydrox/Alum Hydrox 30 Ml Oral.Susp) 30 ml PO Q6H PRN PRN Reason: Heartburn/Nausea Apixaban (Apixaban 5 Mg Tablet) 5 mg PO BID [facility] Last Admin: 08/26/23 08:46 Dose: 5 mg Lisinopril (Lisinopril 5 Mg Tablet) 5 mg PO DAILY [facility]; Protocol Last Admin: 08/26/23 08:46 Dose: 5 mg Magnesium Hydroxide (Milk Of Magnesia 30 Ml Oral.Susp) 30 ml PO DAILY PRN PRN Reason: Constipation Last Admin: 08/24/23 09:07 Dose: 30 ml Mirtazapine (Mirtazapine 15 Mg Tablet) 15 mg PO BEDTIME [facility] Last Admin: 08/25/23 20:10 Dose: 15 mg Risperidone (Risperidone 1 Mg Tablet) 1 mg PO DAILY [facility] Last Admin: 08/26/23 08:45 Dose: 1 mg Risperidone (Risperidone 2 Mg Tablet) 2 mg PO BEDTIME [facility] Last Admin: 08/25/23 20:11 Dose: 2 mg Sotalol HCl (Sotalol Hcl 80 Mg Tablet) 80 mg PO DAILY@0800 [facility] Last Admin: 08/26/23 08:48 Dose: 80 mg Spironolactone (Spironolactone 25 Mg Tablet) 25 mg PO DAILY [facility]; Protocol Last Admin: 08/26/23 08:45 Dose: 25 mg Trazodone HCl (Trazodone Hcl 50 Mg Tablet) 50 mg PO BEDTIME MRX1 PRN PRN Reason: Insomnia Last Admin: 08/25/23 20:14 Dose: 50 mg Allergies Allergies Allergy/AdvReac Type Severity Reaction Status Date / Time latex AdvReac Unknown Verified 08/04/23 17:51 levofloxacin AdvReac Unknown Verified 08/04/23 17:51 Sulfa (Sulfonamide AdvReac Unknown Verified 08/04/23 17:51 Antibiotics) Assessment & Plan Assessment & Plan (1) Major neurocognitive disorder: Status: Acute Code(s): F03.90 - Unspecified dementia, unspecified severity, without behavioral disturbance, psychotic disturbance, mood disturbance, and anxiety Plan Mrs. Haddad is a 77 year-old woman with dementia, appears alzheimer's type or mixed etiology. Pt was brought to [facility] ED due to increase visual and auditory hallucinatinos of woman telling her to go places and paranoid ideas. Unfortunately, after pt was brought to ED, her and HCP unexpectedly at home. Her brother, Adam ([phone]) who is very familiar with her situation, can be her new HCP and pt does show understanding/capacity to appoint HCP. She continues to present with some paranoid delusions, AH. May consider switching abilify to risperidone as it may be more effective in targeting symptoms. PLAN 5/6 BP has lowered since admission, will check ortho VS. Will increase risperidone at bedtime 1mg po qhs and continue risperidone 0.5mg po BID at 8am and 1500. No behavioral concerns. updated brother of medication changes. 08/14 continue tx. 08/15 continue tx. 08/16 continue tx. 08/17 continue tx. 08/19/2023 Continue Risperdal patient continues to have some auditory hallucinations less intrusive 08/20/2023 Continue plan of care 08/20 continue tx. 08/21 continue tx. 08/22 increase risperidone 1mg po daily and 2mg po qhs. 08/23 continue tx. 08/24 ordered UA- episode of incontinence, plus pt reports burning while urinating. continue all other meds. 08/25: Continue current treatment and plan. Hospitalist consult for UTI Reason for continued inpatient stay Substantial Risk for: inability to function Time Spent With Patient Time: Total time managing care of this patient today ____ minutes.
--- NOTE | 2023-08-26 15:01 | PM.EVENT ---
Event Note Date of Service: 08/26/23 Event Note: Patient is a 77-year-old female with a PMH for paroxysmal AFib on Eliquis, HTN, and unspecified dementia with consult placed to hospitalist services for UA analysis and possible UTI treatment recommendations. Patient reporting dysuria and UA positive for UTI. Contacted microbiology and ordered urine cultures. Will treat with cefuroxime 500 mg p.o. b.i.d. x7 days. Follow cultures and change antibiotic treatment as necessary. Time Spent With Patient Time: Total time managing care of this patient today ____ minutes.
[2023-08-26] MEDS: cefuroxime axetiL 500 MG TABLET PO ×2 (15:46→20:20)
--- NOTE | 2023-08-26 15:46 | PC.NURSE ---
Addendum entered by Lianet Martinez RN 08/26/23 15:47: Ceftin 500mg q12 hours ordered. Original Note: Patient seen by hospitalist for consult r/t symptoms of uti. Ceftin 500 mhg
[2023-08-26 20:00] VITALS: BP 118/58; PULSE 55; RESP 16; TEMP 36; O2SAT 99
[2023-08-26] MEDS: Mirtazapine 15 MG TABLET PO (20:20)
[2023-08-26] MEDS: risperiDONE 2 MG TABLET PO (20:20)
[2023-08-27 08:00] VITALS: BP 139/62; PULSE 58; RESP 18; TEMP 36.3; O2SAT 96
[2023-08-27] MEDS: Apixaban 5 MG TABLET PO ×2 (08:37→20:51)
[2023-08-27] MEDS: Sotalol HCL 80 MG TABLET PO (08:37)
[2023-08-27 08:38] VITALS: BP 139/62
[2023-08-27] MEDS: Spironolactone 25 MG TABLET PO (08:38)
[2023-08-27] MEDS: cefuroxime axetiL 500 MG TABLET PO ×2 (08:38→20:51)
[2023-08-27 08:39] VITALS: BP 139/62
[2023-08-27] MEDS: risperiDONE 1 MG TABLET PO (08:39)
[2023-08-27] MEDS: lisinopriL 5 MG TABLET PO (08:39)
--- NOTE | 2023-08-27 10:53 | P.PNPSI_ITS ---
Subjective Subjective Date of Service: 08/27/23 Reason For Visit: Unspecified anxiety disorder Subjective Notes: Conditional Voluntary Interim History: Patient was seen and discussed in rounds today. Records and plans were reviewed. She was seen by the hospitalist yesterday and treated with Ceftin for her UTI. Continues to be confused and cognitively impaired. Eating and sleeping well. No changes were made today Review of Systems Review of Systems Yes all other systems are reviewed and are negative Mental Status Exam Mental Status Exam Narrative: In today's visit she is alert, oriented to place and person and to sometime. Speech is soft-spoken. Little eye contact. Affect is constricted. No acute signs of psychosis but reports some auditory hallucinations. No overt delusions. No dangerous behaviors. Cognitively impaired. Judgment is impaired Diagnostics Vital Signs (24Hr): Vital Signs - 24 hr 08/26/23 20:00 08/27/23 08:00 08/27/23 08:38 Temperature 96.8 F 97.4 F Pulse Rate 55 58 Respiratory Rate 16 18 Blood Pressure 118/58 L 139/62 139/62 Pulse Oximetry 99 96 Oxygen Delivery Method Room Air Room Air 08/27/23 08:39 Temperature Pulse Rate Respiratory Rate Blood Pressure 139/62 Pulse Oximetry Oxygen Delivery Method BMI result Body Mass Index 38.6 Labs 08/05/23 08:03 Labs: Laboratory Results - last 48 hr 08/25/23 14:21 Urine Color Yellow Urine Appearance Clear Urine pH 5.5 Ur Specific [place] 1.020 Urine Protein Negative Urine Glucose (UA) Negative Urine Ketones Negative Urine Blood Negative Urine Nitrite Negative Ur Leukocyte Esterase Moderate (2+) H Urine RBC 0-2 Urine WBC >50 H Ur Squamous Epith Cells 0-2 Urine Bacteria 1+ Hyaline Casts 0-2 Medications Medications Current Medications Acetaminophen (Acetaminophen 325 Mg Tablet) 650 mg PO Q6H PRN PRN Reason: Headache/Pain Mild Scale (1-3) Last Admin: 08/22/23 08:50 Dose: 650 mg Al Hydroxide/Mg Hydroxide (Magnesium Hydrox/Alum Hydrox 30 Ml Oral.Susp) 30 ml PO Q6H PRN PRN Reason: Heartburn/Nausea Apixaban (Apixaban 5 Mg Tablet) 5 mg PO BID [facility] Last Admin: 08/27/23 08:37 Dose: 5 mg Cefuroxime Axetil (Cefuroxime Axetil 500 Mg Tablet) 500 mg PO BID [facility] Stop: 09/02/23 09:01 Last Admin: 08/27/23 08:38 Dose: 500 mg Lisinopril (Lisinopril 5 Mg Tablet) 5 mg PO DAILY [facility]; Protocol Last Admin: 08/27/23 08:39 Dose: 5 mg Magnesium Hydroxide (Milk Of Magnesia 30 Ml Oral.Susp) 30 ml PO DAILY PRN PRN Reason: Constipation Last Admin: 08/24/23 09:07 Dose: 30 ml Mirtazapine (Mirtazapine 15 Mg Tablet) 15 mg PO BEDTIME [facility] Last Admin: 08/26/23 20:20 Dose: 15 mg Risperidone (Risperidone 1 Mg Tablet) 1 mg PO DAILY [facility] Last Admin: 08/27/23 08:39 Dose: 1 mg Risperidone (Risperidone 2 Mg Tablet) 2 mg PO BEDTIME [facility] Last Admin: 08/26/23 20:20 Dose: 2 mg Sotalol HCl (Sotalol Hcl 80 Mg Tablet) 80 mg PO DAILY@0800 [facility] Last Admin: 08/27/23 08:37 Dose: 80 mg Spironolactone (Spironolactone 25 Mg Tablet) 25 mg PO DAILY [facility]; Protocol Last Admin: 08/27/23 08:38 Dose: 25 mg Trazodone HCl (Trazodone Hcl 50 Mg Tablet) 50 mg PO BEDTIME MRX1 PRN PRN Reason: Insomnia Last Admin: 08/25/23 20:14 Dose: 50 mg Allergies Allergies Allergy/AdvReac Type Severity Reaction Status Date / Time latex AdvReac Unknown Verified 08/04/23 17:51 levofloxacin AdvReac Unknown Verified 08/04/23 17:51 Sulfa (Sulfonamide AdvReac Unknown Verified 08/04/23 17:51 Antibiotics) Assessment & Plan Assessment & Plan (1) Major neurocognitive disorder: Status: Acute Code(s): F03.90 - Unspecified dementia, unspecified severity, without behavioral disturbance, psychotic disturbance, mood disturbance, and anxiety Plan Mrs. Haddad is a 77 year-old woman with dementia, appears alzheimer's type or mixed etiology. Pt was brought to [facility] ED due to increase visual and auditory hallucinatinos of woman telling her to go places and paranoid ideas. Unfortunately, after pt was brought to ED, her and HCP unexpectedly at home. Her brother, Adam ([phone]) who is very familiar with her situation, can be her new HCP and pt does show understanding/capacity to appoint HCP. She continues to present with some paranoid delusions, AH. May consider switching abilify to risperidone as it may be more effective in targeting symptoms. PLAN 08/13 BP has lowered since admission, will check ortho VS. Will increase risperidone at bedtime 1mg po qhs and continue risperidone 0.5mg po BID at 8am and 1500. No behavioral concerns. updated brother of medication changes. 08/14 continue tx. 08/15 continue tx. 08/16 continue tx. 08/17 continue tx. 08/19/2023 Continue Risperdal patient continues to have some auditory hallucinations less intrusive 08/20/2023 Continue plan of care 08/20 continue tx. 08/21 continue tx. 08/22 increase risperidone 1mg po daily and 2mg po qhs. 08/23 continue tx. 08/24 ordered UA- episode of incontinence, plus pt reports burning while urinating. continue all other meds. 08/25: Continue current treatment and plan. Hospitalist consult for UTI 08/26: Continue current regimen and plans Reason for continued inpatient stay Substantial Risk for: inability to function Time Spent With Patient Time: Total time managing care of this patient today ____ minutes.
[2023-08-27 20:00] VITALS: BP 114/58; PULSE 53; RESP 16; TEMP 36; O2SAT 99
[2023-08-27] MEDS: risperiDONE 2 MG TABLET PO (20:51)
[2023-08-27] MEDS: Mirtazapine 15 MG TABLET PO (20:52)
[2023-08-28 08:00] VITALS: BP 114/53; PULSE 51; RESP 16; TEMP 36.3; O2SAT 98
[2023-08-28 08:18] VITALS: BP 114/53
[2023-08-28] MEDS: risperiDONE 1 MG TABLET PO (08:18)
[2023-08-28] MEDS: lisinopriL 5 MG TABLET PO (08:18)
[2023-08-28] MEDS: cefuroxime axetiL 500 MG TABLET PO ×2 (08:18→20:18)
[2023-08-28] MEDS: Apixaban 5 MG TABLET PO ×2 (08:18→20:19)
[2023-08-28] MEDS: Spironolactone 25 MG TABLET PO (08:18)
[2023-08-28 20:00] VITALS: BP 105/55; PULSE 60; RESP 18; TEMP 35.1; O2SAT 99
[2023-08-28] MEDS: Mirtazapine 15 MG TABLET PO (20:18)
[2023-08-28] MEDS: traZODone HCL 50 MG TABLET PO (20:18)
[2023-08-28] MEDS: risperiDONE 2 MG TABLET PO (20:18)
[2023-08-29 08:00] VITALS: BP 129/62; PULSE 58; RESP 16; TEMP 36.3; O2SAT 97
[2023-08-29 08:28] VITALS: BP 129/62
[2023-08-29] MEDS: Spironolactone 25 MG TABLET PO (08:28)
[2023-08-29 08:29] VITALS: BP 129/62
[2023-08-29] MEDS: risperiDONE 1 MG TABLET PO (08:29)
[2023-08-29] MEDS: lisinopriL 5 MG TABLET PO (08:29)
[2023-08-29] MEDS: Apixaban 5 MG TABLET PO ×2 (08:29→20:35)
[2023-08-29] MEDS: cefuroxime axetiL 500 MG TABLET PO ×2 (08:29→20:35)
[2023-08-29] MEDS: Sotalol HCL 80 MG TABLET PO (08:29)
--- NOTE | 2023-08-29 11:23 | HO.PSYCHPN ---
Subjective Subjective Date of Service: 08/29/23 Reason For Visit: Unspecified anxiety disorder Subjective Notes: Conditional Voluntary Healthcare Proxy: Yes Interim History: Pt slept most of the night. She presents as less paranoid and suspicious but still at times whispers and asks this adjusto writer operator that she hopes others here won't know where she is going next. No behavioral concerns. She is reports constipation- ordered miralax. She denies any other concerns awaiting placement. Review of Systems Review of Systems Burning on urination Yes all other systems are reviewed and are negative Mental Status Exam Mental Status Exam Patient Appearance: Appropriate Patient Orientation: Person Level of Consciousness: Awake Patient Behavior: Guarded and Cooperative Mood Description: Withdrawn Affect Description: Constricted Patient Cognition Impaired: Yes Ability to Follow Directions: Good Speech Pattern: Clear Diagnostics Vital Signs (24Hr): Vital Signs - 24 hr 08/28/23 20:00 08/29/23 08:00 08/29/23 08:28 Temperature 95.1 F L 97.3 F Pulse Rate 60 58 Respiratory Rate 18 16 Blood Pressure 105/55 L 129/62 129/62 Pulse Oximetry 99 97 Oxygen Delivery Method Room Air Room Air 08/29/23 08:29 Temperature Pulse Rate Respiratory Rate Blood Pressure 129/62 Pulse Oximetry Oxygen Delivery Method BMI result Body Mass Index 38.6 Labs 08/05/23 08:03 Medications Medications Current Medications Acetaminophen (Acetaminophen 325 Mg Tablet) 650 mg PO Q6H PRN PRN Reason: Headache/Pain Mild Scale (1-3) Last Admin: 08/22/23 08:50 Dose: 650 mg Al Hydroxide/Mg Hydroxide (Magnesium Hydrox/Alum Hydrox 30 Ml Oral.Susp) 30 ml PO Q6H PRN PRN Reason: Heartburn/Nausea Apixaban (Apixaban 5 Mg Tablet) 5 mg PO BID [facility] Last Admin: 08/29/23 08:29 Dose: 5 mg Cefuroxime Axetil (Cefuroxime Axetil 500 Mg Tablet) 500 mg PO BID [facility] Stop: 09/02/23 09:01 Last Admin: 08/29/23 08:29 Dose: 500 mg Lisinopril (Lisinopril 5 Mg Tablet) 5 mg PO DAILY [facility]; Protocol Last Admin: 08/29/23 08:29 Dose: 5 mg Magnesium Hydroxide (Milk Of Magnesia 30 Ml Oral.Susp) 30 ml PO DAILY PRN PRN Reason: Constipation Last Admin: 08/24/23 09:07 Dose: 30 ml Mirtazapine (Mirtazapine 15 Mg Tablet) 15 mg PO BEDTIME [facility] Last Admin: 08/28/23 20:18 Dose: 15 mg Risperidone (Risperidone 1 Mg Tablet) 1 mg PO DAILY [facility] Last Admin: 08/29/23 08:29 Dose: 1 mg Risperidone (Risperidone 2 Mg Tablet) 2 mg PO BEDTIME [facility] Last Admin: 08/28/23 20:18 Dose: 2 mg Sotalol HCl (Sotalol Hcl 80 Mg Tablet) 80 mg PO DAILY@0800 [facility] Last Admin: 08/29/23 08:29 Dose: 80 mg Spironolactone (Spironolactone 25 Mg Tablet) 25 mg PO DAILY [facility]; Protocol Last Admin: 08/29/23 08:28 Dose: 25 mg Trazodone HCl (Trazodone Hcl 50 Mg Tablet) 50 mg PO BEDTIME MRX1 PRN PRN Reason: Insomnia Last Admin: 08/28/23 20:18 Dose: 50 mg Allergies Allergies Allergy/AdvReac Type Severity Reaction Status Date / Time latex AdvReac Unknown Verified 08/04/23 17:51 levofloxacin AdvReac Unknown Verified 08/04/23 17:51 Sulfa (Sulfonamide AdvReac Unknown Verified 08/04/23 17:51 Antibiotics) Assessment & Plan Assessment & Plan (1) Major neurocognitive disorder: Status: Acute Code(s): F03.90 - Unspecified dementia, unspecified severity, without behavioral disturbance, psychotic disturbance, mood disturbance, and anxiety Plan Mrs. Haddad is a 77 year-old woman with dementia, appears alzheimer's type or mixed etiology. Pt was brought to [facility] ED due to increase visual and auditory hallucinatinos of woman telling her to go places and paranoid ideas. Unfortunately, after pt was brought to ED, her and HCP unexpectedly at home. Her brother, Adam ([phone]) who is very familiar with her situation, can be her new HCP and pt does show understanding/capacity to appoint HCP. She continues to present with some paranoid delusions, AH. May consider switching abilify to risperidone as it may be more effective in targeting symptoms. PLAN 5/6 BP has lowered since admission, will check ortho VS. Will increase risperidone at bedtime 1mg po qhs and continue risperidone 0.5mg po BID at 8am and 1500. No behavioral concerns. updated brother of medication changes. 08/14 continue tx. 08/15 continue tx. 08/16 continue tx. 08/17 continue tx. 08/19/2023 Continue Risperdal patient continues to have some auditory hallucinations less intrusive 08/20/2023 Continue plan of care 08/20 continue tx. 08/21 continue tx. 08/22 increase risperidone 1mg po daily and 2mg po qhs. 08/23 continue tx. 08/24 ordered UA- episode of incontinence, plus pt reports burning while urinating. continue all other meds. 08/25: Continue current treatment and plan. 08/27: Continue current regimen and plans Reason for continued inpatient stay Substantial Risk for: inability to function Time Spent With Patient Time: Total time managing care of this patient today ____ minutes.
[2023-08-29] MEDS: polyethylene glycoL 3350 17 GM POWD.PACK PO (12:16)
[2023-08-29 20:00] VITALS: BP 137/59; PULSE 52; RESP 16; TEMP 36.4; O2SAT 98
[2023-08-29] MEDS: traZODone HCL 50 MG TABLET PO (20:35)
[2023-08-29] MEDS: risperiDONE 2 MG TABLET PO (20:35)
[2023-08-29] MEDS: Mirtazapine 15 MG TABLET PO (20:35)
[2023-08-30 08:00] VITALS: BP 120/58; PULSE 60; RESP 17; O2SAT 98
[2023-08-30] MEDS: Apixaban 5 MG TABLET PO ×2 (08:15→20:17)
[2023-08-30 08:16] VITALS: BP 120/58
[2023-08-30] MEDS: risperiDONE 1 MG TABLET PO (08:16)
[2023-08-30] MEDS: lisinopriL 5 MG TABLET PO (08:16)
[2023-08-30] MEDS: cefuroxime axetiL 500 MG TABLET PO ×2 (08:16→20:17)
[2023-08-30] MEDS: Spironolactone 25 MG TABLET PO (08:16)
--- NOTE | 2023-08-30 09:26 | P.PNPSI_ITS ---
Subjective Subjective Date of Service: 08/30/23 Reason For Visit: Unspecified anxiety disorder Subjective Notes: Conditional Voluntary Interim History: Pt slept most of the night. She reports feeling good. She denies SI/HI. She reports looking forward to move to new facility next week. Less paranoia but still somewhat guarded about others hearing her information. She denies physical concerns. Medication Compliance: Yes Review of Systems Review of Systems Burning on urination Yes all other systems are reviewed and are negative Mental Status Exam Mental Status Exam Patient Appearance: Appropriate Patient Orientation: Person Level of Consciousness: Awake Patient Behavior: Guarded and Cooperative Mood Description: Withdrawn Affect Description: Constricted Patient Cognition Impaired: Yes Ability to Follow Directions: Good Speech Pattern: Clear Diagnostics Vital Signs (24Hr): Vital Signs - 24 hr 08/29/23 20:00 08/30/23 08:00 08/30/23 08:16 Temperature 97.6 F Pulse Rate 52 60 Respiratory Rate 16 17 Blood Pressure 137/59 L 120/58 L 120/58 L Pulse Oximetry 98 98 Oxygen Delivery Method Room Air Room Air 08/30/23 08:16 Temperature Pulse Rate Respiratory Rate Blood Pressure 120/58 L Pulse Oximetry Oxygen Delivery Method BMI result Body Mass Index 38.6 Labs 08/05/23 08:03 Medications Medications Current Medications Acetaminophen (Acetaminophen 325 Mg Tablet) 650 mg PO Q6H PRN PRN Reason: Headache/Pain Mild Scale (1-3) Last Admin: 08/22/23 08:50 Dose: 650 mg Al Hydroxide/Mg Hydroxide (Magnesium Hydrox/Alum Hydrox 30 Ml Oral.Susp) 30 ml PO Q6H PRN PRN Reason: Heartburn/Nausea Apixaban (Apixaban 5 Mg Tablet) 5 mg PO BID [facility] Last Admin: 08/30/23 08:15 Dose: 5 mg Cefuroxime Axetil (Cefuroxime Axetil 500 Mg Tablet) 500 mg PO BID [facility] Stop: 09/02/23 09:01 Last Admin: 08/30/23 08:16 Dose: 500 mg Lisinopril (Lisinopril 5 Mg Tablet) 5 mg PO DAILY [facility]; Protocol Last Admin: 08/30/23 08:16 Dose: 5 mg Magnesium Hydroxide (Milk Of Magnesia 30 Ml Oral.Susp) 30 ml PO DAILY PRN PRN Reason: Constipation Last Admin: 08/24/23 09:07 Dose: 30 ml Mirtazapine (Mirtazapine 15 Mg Tablet) 15 mg PO BEDTIME [facility] Last Admin: 08/29/23 20:35 Dose: 15 mg Risperidone (Risperidone 1 Mg Tablet) 1 mg PO DAILY [facility] Last Admin: 08/30/23 08:16 Dose: 1 mg Risperidone (Risperidone 2 Mg Tablet) 2 mg PO BEDTIME [facility] Last Admin: 08/29/23 20:35 Dose: 2 mg Sotalol HCl (Sotalol Hcl 80 Mg Tablet) 80 mg PO DAILY@0800 [facility] Last Admin: 08/30/23 08:16 Dose: Not Given Spironolactone (Spironolactone 25 Mg Tablet) 25 mg PO DAILY [facility]; Protocol Last Admin: 08/30/23 08:16 Dose: 25 mg Trazodone HCl (Trazodone Hcl 50 Mg Tablet) 50 mg PO BEDTIME MRX1 PRN PRN Reason: Insomnia Last Admin: 08/29/23 20:35 Dose: 50 mg Allergies Allergies Allergy/AdvReac Type Severity Reaction Status Date / Time latex AdvReac Unknown Verified 08/04/23 17:51 levofloxacin AdvReac Unknown Verified 08/04/23 17:51 Sulfa (Sulfonamide AdvReac Unknown Verified 08/04/23 17:51 Antibiotics) Assessment & Plan Assessment & Plan (1) Major neurocognitive disorder: Status: Acute Code(s): F03.90 - Unspecified dementia, unspecified severity, without behavioral disturbance, psychotic disturbance, mood disturbance, and anxiety Plan Mrs. Haddad is a 77 year-old woman with dementia, appears alzheimer's type or mixed etiology. Pt was brought to [facility] ED due to increase visual and auditory hallucinatinos of woman telling her to go places and paranoid ideas. Unfortunately, after pt was brought to ED, her and HCP unexpectedly at home. Her brother, Adam ([phone]) who is very familiar with her situation, can be her new HCP and pt does show understanding/capacity to appoint HCP. She continues to present with some paranoid delusions, AH. May consider switching abilify to risperidone as it may be more effective in targeting symptoms. PLAN 5/6 BP has lowered since admission, will check ortho VS. Will increase risperidone at bedtime 1mg po qhs and continue risperidone 0.5mg po BID at 8am and 1500. No behavioral concerns. updated brother of medication changes. 08/14 continue tx. 08/15 continue tx. 08/16 continue tx. 08/17 continue tx. 08/19/2023 Continue Risperdal patient continues to have some auditory hallucinations less intrusive 08/20/2023 Continue plan of care 08/20 continue tx. 08/21 continue tx. 08/22 increase risperidone 1mg po daily and 2mg po qhs. 08/23 continue tx. 08/24 ordered UA- episode of incontinence, plus pt reports burning while urinating. continue all other meds. 08/25: Continue current treatment and plan. 08/29: Continue current regimen and plans Reason for continued inpatient stay Substantial Risk for: inability to function Time Spent With Patient Time: Total time managing care of this patient today ____ minutes.
[2023-08-30 20:00] VITALS: BP 131/60; PULSE 70; TEMP 36.5; O2SAT 99
[2023-08-30] MEDS: traZODone HCL 50 MG TABLET PO (20:16)
[2023-08-30] MEDS: risperiDONE 2 MG TABLET PO (20:16)
[2023-08-30] MEDS: Mirtazapine 15 MG TABLET PO (20:17)
[2023-08-31 08:00] VITALS: BP 155/66; PULSE 58; RESP 16; TEMP 36.6; O2SAT 98
[2023-08-31 09:15] VITALS: BP 155/66
[2023-08-31] MEDS: Spironolactone 25 MG TABLET PO (09:15)
[2023-08-31] MEDS: Sotalol HCL 80 MG TABLET PO (09:15)
[2023-08-31] MEDS: lisinopriL 5 MG TABLET PO (09:15)
[2023-08-31] MEDS: cefuroxime axetiL 500 MG TABLET PO ×2 (09:15→20:18)
[2023-08-31] MEDS: risperiDONE 1 MG TABLET PO (09:16)
[2023-08-31] MEDS: Apixaban 5 MG TABLET PO ×2 (09:16→20:18)
[2023-08-31 09:39] VITALS: BMI 39.2
[2023-08-31 20:15] VITALS: BP 141/63; PULSE 61; RESP 19; TEMP 36.2; O2SAT 99
[2023-08-31] MEDS: risperiDONE 2 MG TABLET PO (20:17)
[2023-08-31] MEDS: traZODone HCL 50 MG TABLET PO (20:18)
[2023-08-31] MEDS: Mirtazapine 15 MG TABLET PO (20:18)
[2023-09-01 08:00] VITALS: BP 118/58; PULSE 58; RESP 16; TEMP 36.2; O2SAT 99
[2023-09-01 08:22] VITALS: BP 118/58
[2023-09-01] MEDS: cefuroxime axetiL 500 MG TABLET PO ×2 (08:22→21:01)
[2023-09-01] MEDS: risperiDONE 1 MG TABLET PO (08:22)
[2023-09-01] MEDS: Spironolactone 25 MG TABLET PO (08:22)
[2023-09-01 08:23] VITALS: BP 118/58
[2023-09-01] MEDS: Apixaban 5 MG TABLET PO ×2 (08:23→21:01)
[2023-09-01] MEDS: Sotalol HCL 80 MG TABLET PO (08:23)
[2023-09-01] MEDS: lisinopriL 5 MG TABLET PO (08:23)
--- NOTE | 2023-09-01 10:03 | HO.PSYCHPN ---
Subjective Subjective Date of Service: 08/31/23 Reason For Visit: Unspecified anxiety disorder Subjective Notes: Conditional Voluntary Healthcare Proxy: Yes Interim History: Pt slept most of the night. She reports feeling good. She is attending groups, slightly brighter affect. She denies SI/HI. She reports looking forward to move to new facility next week. Less paranoia but still somewhat guarded about others hearing her information. She denies physical concerns. Review of Systems Review of Systems Burning on urination Yes all other systems are reviewed and are negative Mental Status Exam Mental Status Exam Patient Appearance: Appropriate Patient Orientation: Person Level of Consciousness: Awake Patient Behavior: Guarded and Cooperative Mood Description: Withdrawn Affect Description: Constricted Patient Cognition Impaired: Yes Ability to Follow Directions: Good Speech Pattern: Clear Diagnostics Vital Signs (24Hr): Vital Signs - 24 hr 08/31/23 20:15 09/01/23 08:00 09/01/23 08:22 Temperature 97.1 F 97.2 F Pulse Rate 61 58 Respiratory Rate 19 16 Blood Pressure 141/63 H 118/58 L 118/58 L Pulse Oximetry 99 99 Oxygen Delivery Method Room Air Room Air 09/01/23 08:23 Temperature Pulse Rate Respiratory Rate Blood Pressure 118/58 L Pulse Oximetry Oxygen Delivery Method BMI result Body Mass Index 39.2 Labs 08/05/23 08:03 Medications Medications Current Medications Acetaminophen (Acetaminophen 325 Mg Tablet) 650 mg PO Q6H PRN PRN Reason: Headache/Pain Mild Scale (1-3) Last Admin: 08/22/23 08:50 Dose: 650 mg Al Hydroxide/Mg Hydroxide (Magnesium Hydrox/Alum Hydrox 30 Ml Oral.Susp) 30 ml PO Q6H PRN PRN Reason: Heartburn/Nausea Apixaban (Apixaban 5 Mg Tablet) 5 mg PO BID [facility] Last Admin: 09/01/23 08:23 Dose: 5 mg Cefuroxime Axetil (Cefuroxime Axetil 500 Mg Tablet) 500 mg PO BID [facility] Stop: 09/02/23 09:01 Last Admin: 09/01/23 08:22 Dose: 500 mg Lisinopril (Lisinopril 5 Mg Tablet) 5 mg PO DAILY [facility]; Protocol Last Admin: 09/01/23 08:23 Dose: 5 mg Magnesium Hydroxide (Milk Of Magnesia 30 Ml Oral.Susp) 30 ml PO DAILY PRN PRN Reason: Constipation Last Admin: 08/24/23 09:07 Dose: 30 ml Mirtazapine (Mirtazapine 15 Mg Tablet) 15 mg PO BEDTIME [facility] Last Admin: 08/31/23 20:18 Dose: 15 mg Risperidone (Risperidone 1 Mg Tablet) 1 mg PO DAILY [facility] Last Admin: 09/01/23 08:22 Dose: 1 mg Risperidone (Risperidone 2 Mg Tablet) 2 mg PO BEDTIME [facility] Last Admin: 08/31/23 20:17 Dose: 2 mg Sotalol HCl (Sotalol Hcl 80 Mg Tablet) 80 mg PO DAILY@0800 [facility] Last Admin: 09/01/23 08:23 Dose: 80 mg Spironolactone (Spironolactone 25 Mg Tablet) 25 mg PO DAILY [facility]; Protocol Last Admin: 09/01/23 08:22 Dose: 25 mg Trazodone HCl (Trazodone Hcl 50 Mg Tablet) 50 mg PO BEDTIME MRX1 PRN PRN Reason: Insomnia Last Admin: 08/31/23 20:18 Dose: 50 mg Allergies Allergies Allergy/AdvReac Type Severity Reaction Status Date / Time latex AdvReac Unknown Verified 08/04/23 17:51 levofloxacin AdvReac Unknown Verified 08/04/23 17:51 Sulfa (Sulfonamide AdvReac Unknown Verified 08/04/23 17:51 Antibiotics) Assessment & Plan Assessment & Plan (1) Major neurocognitive disorder: Status: Acute Code(s): F03.90 - Unspecified dementia, unspecified severity, without behavioral disturbance, psychotic disturbance, mood disturbance, and anxiety Plan Mrs. Haddad is a 77 year-old woman with dementia, appears alzheimer's type or mixed etiology. Pt was brought to [facility] ED due to increase visual and auditory hallucinatinos of woman telling her to go places and paranoid ideas. Unfortunately, after pt was brought to ED, her and HCP unexpectedly at home. Her brother, Adam ([phone]) who is very familiar with her situation, can be her new HCP and pt does show understanding/capacity to appoint HCP. She continues to present with some paranoid delusions, AH. May consider switching abilify to risperidone as it may be more effective in targeting symptoms. PLAN 5/6 BP has lowered since admission, will check ortho VS. Will increase risperidone at bedtime 1mg po qhs and continue risperidone 0.5mg po BID at 8am and 1500. No behavioral concerns. updated brother of medication changes. 08/14 continue tx. 08/15 continue tx. 08/16 continue tx. 08/17 continue tx. 08/19/2023 Continue Risperdal patient continues to have some auditory hallucinations less intrusive 08/20/2023 Continue plan of care 08/20 continue tx. 08/21 continue tx. 08/22 increase risperidone 1mg po daily and 2mg po qhs. 08/23 continue tx. 08/24 ordered UA- episode of incontinence, plus pt reports burning while urinating. continue all other meds. 08/25: Continue current treatment and plan. 08/30: Continue current regimen and plans Reason for continued inpatient stay Substantial Risk for: inability to function Time Spent With Patient Time: Total time managing care of this patient today ____ minutes.
--- NOTE | 2023-09-01 10:04 | HO.PSYCHPN ---
Subjective Subjective Date of Service: 09/01/23 Reason For Visit: Unspecified anxiety disorder Subjective Notes: Conditional Voluntary Healthcare Proxy: Yes Interim History: Pt slept most of the night. She reports feeling good. She continues to attend groups, slightly brighter affect. She denies SI/HI. She reports looking forward to move to new facility next week. Less paranoia but still somewhat guarded about others hearing her information. She denies physical concerns. Review of Systems Review of Systems Burning on urination Yes all other systems are reviewed and are negative Mental Status Exam Mental Status Exam Patient Appearance: Appropriate Patient Orientation: Person Level of Consciousness: Awake Patient Behavior: Guarded and Cooperative Mood Description: Withdrawn Affect Description: Constricted Patient Cognition Impaired: Yes Ability to Follow Directions: Good Speech Pattern: Clear Diagnostics Vital Signs (24Hr): Vital Signs - 24 hr 08/31/23 20:15 09/01/23 08:00 09/01/23 08:22 Temperature 97.1 F 97.2 F Pulse Rate 61 58 Respiratory Rate 19 16 Blood Pressure 141/63 H 118/58 L 118/58 L Pulse Oximetry 99 99 Oxygen Delivery Method Room Air Room Air 09/01/23 08:23 Temperature Pulse Rate Respiratory Rate Blood Pressure 118/58 L Pulse Oximetry Oxygen Delivery Method BMI result Body Mass Index 39.2 Labs 08/05/23 08:03 Medications Medications Current Medications Acetaminophen (Acetaminophen 325 Mg Tablet) 650 mg PO Q6H PRN PRN Reason: Headache/Pain Mild Scale (1-3) Last Admin: 08/22/23 08:50 Dose: 650 mg Al Hydroxide/Mg Hydroxide (Magnesium Hydrox/Alum Hydrox 30 Ml Oral.Susp) 30 ml PO Q6H PRN PRN Reason: Heartburn/Nausea Apixaban (Apixaban 5 Mg Tablet) 5 mg PO BID [facility] Last Admin: 09/01/23 08:23 Dose: 5 mg Cefuroxime Axetil (Cefuroxime Axetil 500 Mg Tablet) 500 mg PO BID [facility] Stop: 09/02/23 09:01 Last Admin: 09/01/23 08:22 Dose: 500 mg Lisinopril (Lisinopril 5 Mg Tablet) 5 mg PO DAILY [facility]; Protocol Last Admin: 09/01/23 08:23 Dose: 5 mg Magnesium Hydroxide (Milk Of Magnesia 30 Ml Oral.Susp) 30 ml PO DAILY PRN PRN Reason: Constipation Last Admin: 08/24/23 09:07 Dose: 30 ml Mirtazapine (Mirtazapine 15 Mg Tablet) 15 mg PO BEDTIME [facility] Last Admin: 08/31/23 20:18 Dose: 15 mg Risperidone (Risperidone 1 Mg Tablet) 1 mg PO DAILY [facility] Last Admin: 09/01/23 08:22 Dose: 1 mg Risperidone (Risperidone 2 Mg Tablet) 2 mg PO BEDTIME [facility] Last Admin: 08/31/23 20:17 Dose: 2 mg Sotalol HCl (Sotalol Hcl 80 Mg Tablet) 80 mg PO DAILY@0800 [facility] Last Admin: 09/01/23 08:23 Dose: 80 mg Spironolactone (Spironolactone 25 Mg Tablet) 25 mg PO DAILY [facility]; Protocol Last Admin: 09/01/23 08:22 Dose: 25 mg Trazodone HCl (Trazodone Hcl 50 Mg Tablet) 50 mg PO BEDTIME MRX1 PRN PRN Reason: Insomnia Last Admin: 08/31/23 20:18 Dose: 50 mg Allergies Allergies Allergy/AdvReac Type Severity Reaction Status Date / Time latex AdvReac Unknown Verified 08/04/23 17:51 levofloxacin AdvReac Unknown Verified 08/04/23 17:51 Sulfa (Sulfonamide AdvReac Unknown Verified 08/04/23 17:51 Antibiotics) Assessment & Plan Assessment & Plan (1) Major neurocognitive disorder: Status: Acute Code(s): F03.90 - Unspecified dementia, unspecified severity, without behavioral disturbance, psychotic disturbance, mood disturbance, and anxiety Plan Mrs. Haddad is a 77 year-old woman with dementia, appears alzheimer's type or mixed etiology. Pt was brought to [facility] ED due to increase visual and auditory hallucinatinos of woman telling her to go places and paranoid ideas. Unfortunately, after pt was brought to ED, her and HCP unexpectedly at home. Her brother, Adam ([phone]) who is very familiar with her situation, can be her new HCP and pt does show understanding/capacity to appoint HCP. She continues to present with some paranoid delusions, AH. May consider switching abilify to risperidone as it may be more effective in targeting symptoms. PLAN 5/6 BP has lowered since admission, will check ortho VS. Will increase risperidone at bedtime 1mg po qhs and continue risperidone 0.5mg po BID at 8am and 1500. No behavioral concerns. updated brother of medication changes. 08/14 continue tx. 08/15 continue tx. 08/16 continue tx. 08/17 continue tx. 08/19/2023 Continue Risperdal patient continues to have some auditory hallucinations less intrusive 08/20/2023 Continue plan of care 08/20 continue tx. 08/21 continue tx. 08/22 increase risperidone 1mg po daily and 2mg po qhs. 08/23 continue tx. 08/24 ordered UA- episode of incontinence, plus pt reports burning while urinating. continue all other meds. 08/25: Continue current treatment and plan. 08/30: Continue current regimen and plans 08/31 continue tx. Reason for continued inpatient stay Substantial Risk for: inability to function Time Spent With Patient Time: Total time managing care of this patient today ____ minutes.
[2023-09-01 20:00] VITALS: BP 121/59; PULSE 54; RESP 16; TEMP 36.7; O2SAT 97
[2023-09-01] MEDS: risperiDONE 2 MG TABLET PO (21:01)
[2023-09-01] MEDS: Mirtazapine 15 MG TABLET PO (21:01)
[2023-09-01] MEDS: traZODone HCL 50 MG TABLET PO (21:01)
[2023-09-02 08:00] VITALS: BP 131/62; PULSE 52; RESP 17; TEMP 36.2; O2SAT 98
[2023-09-02 08:35] VITALS: BP 131/62
[2023-09-02] MEDS: cefuroxime axetiL 500 MG TABLET PO (08:35)
[2023-09-02] MEDS: Spironolactone 25 MG TABLET PO (08:35)
[2023-09-02] MEDS: risperiDONE 1 MG TABLET PO (08:35)
[2023-09-02] MEDS: Apixaban 5 MG TABLET PO ×2 (08:35→19:53)
[2023-09-02 08:36] VITALS: BP 131/62
[2023-09-02] MEDS: lisinopriL 5 MG TABLET PO (08:36)
--- NOTE | 2023-09-02 09:01 | HO.PSYCHPN ---
Subjective Subjective Date of Service: 09/02/23 Reason For Visit: Unspecified anxiety disorder Interim History: Pt slept most of the night. She reports feeling good. She continues to attend groups, slightly brighter affect. She denies SI/HI. She reports looking forward to move to new facility next week. Less paranoia but still somewhat guarded about others hearing her information. She denies physical concerns. Review of Systems Review of Systems Burning on urination Yes all other systems are reviewed and are negative Mental Status Exam Mental Status Exam Narrative: In today's visit she is alert, oriented to place and person and to sometime. Speech is soft-spoken. Little eye contact. Affect is constricted. No acute signs of psychosis but reports some auditory hallucinations. No overt delusions. No dangerous behaviors. Cognitively impaired. Judgment is impaired Patient Appearance: Appropriate Patient Orientation: Person Level of Consciousness: Awake Patient Behavior: Guarded and Cooperative Mood Description: Withdrawn Affect Description: Constricted Patient Cognition Impaired: Yes Ability to Follow Directions: Good Speech Pattern: Clear Diagnostics Vital Signs (24Hr): Vital Signs - 24 hr 09/01/23 20:00 09/02/23 08:00 09/02/23 08:35 Temperature 98.1 F 97.2 F Pulse Rate 54 52 Respiratory Rate 16 17 Blood Pressure 121/59 L 131/62 131/62 Pulse Oximetry 97 98 Oxygen Delivery Method Room Air Room Air 09/02/23 08:36 Temperature Pulse Rate Respiratory Rate Blood Pressure 131/62 Pulse Oximetry Oxygen Delivery Method BMI result Body Mass Index 39.2 Labs 08/05/23 08:03 Medications Medications Current Medications Acetaminophen (Acetaminophen 325 Mg Tablet) 650 mg PO Q6H PRN PRN Reason: Headache/Pain Mild Scale (1-3) Last Admin: 08/22/23 08:50 Dose: 650 mg Al Hydroxide/Mg Hydroxide (Magnesium Hydrox/Alum Hydrox 30 Ml Oral.Susp) 30 ml PO Q6H PRN PRN Reason: Heartburn/Nausea Apixaban (Apixaban 5 Mg Tablet) 5 mg PO BID [facility] Last Admin: 09/02/23 08:35 Dose: 5 mg Lisinopril (Lisinopril 5 Mg Tablet) 5 mg PO DAILY [facility]; Protocol Last Admin: 09/02/23 08:36 Dose: 5 mg Magnesium Hydroxide (Milk Of Magnesia 30 Ml Oral.Susp) 30 ml PO DAILY PRN PRN Reason: Constipation Last Admin: 08/24/23 09:07 Dose: 30 ml Mirtazapine (Mirtazapine 15 Mg Tablet) 15 mg PO BEDTIME [facility] Last Admin: 09/01/23 21:01 Dose: 15 mg Risperidone (Risperidone 1 Mg Tablet) 1 mg PO DAILY [facility] Last Admin: 09/02/23 08:35 Dose: 1 mg Risperidone (Risperidone 2 Mg Tablet) 2 mg PO BEDTIME [facility] Last Admin: 09/01/23 21:01 Dose: 2 mg Sotalol HCl (Sotalol Hcl 80 Mg Tablet) 80 mg PO DAILY@0800 [facility] Last Admin: 09/02/23 08:36 Dose: Not Given Spironolactone (Spironolactone 25 Mg Tablet) 25 mg PO DAILY [facility]; Protocol Last Admin: 09/02/23 08:35 Dose: 25 mg Trazodone HCl (Trazodone Hcl 50 Mg Tablet) 50 mg PO BEDTIME MRX1 PRN PRN Reason: Insomnia Last Admin: 09/01/23 21:01 Dose: 50 mg Allergies Allergies Allergy/AdvReac Type Severity Reaction Status Date / Time latex AdvReac Unknown Verified 08/04/23 17:51 levofloxacin AdvReac Unknown Verified 08/04/23 17:51 Sulfa (Sulfonamide AdvReac Unknown Verified 08/04/23 17:51 Antibiotics) Assessment & Plan Assessment & Plan (1) Major neurocognitive disorder: Status: Acute Code(s): F03.90 - Unspecified dementia, unspecified severity, without behavioral disturbance, psychotic disturbance, mood disturbance, and anxiety Plan Mrs. Haddad is a 77 year-old woman with dementia, appears alzheimer's type or mixed etiology. Pt was brought to [facility] ED due to increase visual and auditory hallucinatinos of woman telling her to go places and paranoid ideas. Unfortunately, after pt was brought to ED, her and HCP unexpectedly at home. Her brother, Adam ([phone]) who is very familiar with her situation, can be her new HCP and pt does show understanding/capacity to appoint HCP. She continues to present with some paranoid delusions, AH. May consider switching abilify to risperidone as it may be more effective in targeting symptoms. PLAN 5/6 BP has lowered since admission, will check ortho VS. Will increase risperidone at bedtime 1mg po qhs and continue risperidone 0.5mg po BID at 8am and 1500. No behavioral concerns. updated brother of medication changes. 08/14 continue tx. 08/15 continue tx. 08/16 continue tx. 08/17 continue tx. 08/19/2023 Continue Risperdal patient continues to have some auditory hallucinations less intrusive 08/20/2023 Continue plan of care 08/20 continue tx. 08/21 continue tx. 08/22 increase risperidone 1mg po daily and 2mg po qhs. 08/23 continue tx. 08/24 ordered UA- episode of incontinence, plus pt reports burning while urinating. continue all other meds. 08/25: Continue current treatment and plan. 08/30: Continue current regimen and plans 08/31 continue tx. 09/01: continue current management and treatment plan. Reason for continued inpatient stay Substantial Risk for: inability to function and rapid decompensation Time Spent With Patient Time: Total time managing care of this patient today ____ minutes.
[2023-09-02] MEDS: Mirtazapine 15 MG TABLET PO (19:52)
[2023-09-02] MEDS: risperiDONE 2 MG TABLET PO (19:52)
[2023-09-02] MEDS: traZODone HCL 50 MG TABLET PO (19:53)
[2023-09-02 20:00] VITALS: BP 154/67; PULSE 54; RESP 18; TEMP 36.3; O2SAT 99
[2023-09-03 08:00] VITALS: BP 147/65; PULSE 56; RESP 16; TEMP 36.1; O2SAT 99
[2023-09-03 08:08] VITALS: BP 147/65
[2023-09-03] MEDS: risperiDONE 1 MG TABLET PO (08:08)
[2023-09-03] MEDS: Sotalol HCL 80 MG TABLET PO (08:08)
[2023-09-03] MEDS: Spironolactone 25 MG TABLET PO (08:08)
[2023-09-03] MEDS: Apixaban 5 MG TABLET PO ×2 (08:08→20:09)
[2023-09-03] MEDS: lisinopriL 5 MG TABLET PO (08:08)
--- NOTE | 2023-09-03 16:03 | HO.PSYCHPN ---
Subjective Subjective Date of Service: 09/03/23 Reason For Visit: Unspecified anxiety disorder Interim History: Pt slept most of the night. She reports feeling good. Improved. Encouraged about discharge next week. Feels improved and ready to discharge. Says her brother will help her with the move and that some things of hers are already in the facility. She denies SI/HI. She denies physical concerns. Review of Systems Review of Systems Burning on urination Yes all other systems are reviewed and are negative Mental Status Exam Mental Status Exam Narrative: In today's visit she is alert, oriented to place and person and to sometime. Speech is soft-spoken. Little eye contact. Affect is constricted. No acute signs of psychosis but reports some auditory hallucinations. No overt delusions. No dangerous behaviors. Cognitively impaired. Judgment is impaired Patient Appearance: Appropriate Patient Orientation: Person Level of Consciousness: Awake Patient Behavior: Guarded and Cooperative Mood Description: Withdrawn Affect Description: Constricted Patient Cognition Impaired: Yes Ability to Follow Directions: Good Speech Pattern: Clear Diagnostics Vital Signs (24Hr): Vital Signs - 24 hr 09/02/23 20:00 09/03/23 08:00 09/03/23 08:08 Temperature 97.4 F 97 F Pulse Rate 54 56 Respiratory Rate 18 16 Blood Pressure 154/67 H 147/65 H 147/65 H Pulse Oximetry 99 99 Oxygen Delivery Method Room Air Room Air 09/03/23 08:08 Temperature Pulse Rate Respiratory Rate Blood Pressure 147/65 H Pulse Oximetry Oxygen Delivery Method BMI result Body Mass Index 39.2 Labs 08/05/23 08:03 Medications Medications Current Medications Acetaminophen (Acetaminophen 325 Mg Tablet) 650 mg PO Q6H PRN PRN Reason: Headache/Pain Mild Scale (1-3) Last Admin: 08/22/23 08:50 Dose: 650 mg Al Hydroxide/Mg Hydroxide (Magnesium Hydrox/Alum Hydrox 30 Ml Oral.Susp) 30 ml PO Q6H PRN PRN Reason: Heartburn/Nausea Apixaban (Apixaban 5 Mg Tablet) 5 mg PO BID [facility] Last Admin: 09/03/23 08:08 Dose: 5 mg Lisinopril (Lisinopril 5 Mg Tablet) 5 mg PO DAILY [facility]; Protocol Last Admin: 09/03/23 08:08 Dose: 5 mg Magnesium Hydroxide (Milk Of Magnesia 30 Ml Oral.Susp) 30 ml PO DAILY PRN PRN Reason: Constipation Last Admin: 08/24/23 09:07 Dose: 30 ml Mirtazapine (Mirtazapine 15 Mg Tablet) 15 mg PO BEDTIME [facility] Last Admin: 09/02/23 19:52 Dose: 15 mg Risperidone (Risperidone 1 Mg Tablet) 1 mg PO DAILY [facility] Last Admin: 09/03/23 08:08 Dose: 1 mg Risperidone (Risperidone 2 Mg Tablet) 2 mg PO BEDTIME [facility] Last Admin: 09/02/23 19:52 Dose: 2 mg Sotalol HCl (Sotalol Hcl 80 Mg Tablet) 80 mg PO DAILY@0800 [facility] Last Admin: 09/03/23 08:08 Dose: 80 mg Spironolactone (Spironolactone 25 Mg Tablet) 25 mg PO DAILY [facility]; Protocol Last Admin: 09/03/23 08:08 Dose: 25 mg Trazodone HCl (Trazodone Hcl 50 Mg Tablet) 50 mg PO BEDTIME MRX1 PRN PRN Reason: Insomnia Last Admin: 09/02/23 19:53 Dose: 50 mg Allergies Allergies Allergy/AdvReac Type Severity Reaction Status Date / Time latex AdvReac Unknown Verified 08/04/23 17:51 levofloxacin AdvReac Unknown Verified 08/04/23 17:51 Sulfa (Sulfonamide AdvReac Unknown Verified 08/04/23 17:51 Antibiotics) Assessment & Plan Assessment & Plan (1) Major neurocognitive disorder: Status: Acute Code(s): F03.90 - Unspecified dementia, unspecified severity, without behavioral disturbance, psychotic disturbance, mood disturbance, and anxiety Plan Mrs. Haddad is a 77 year-old woman with dementia, appears alzheimer's type or mixed etiology. Pt was brought to [facility] ED due to increase visual and auditory hallucinatinos of woman telling her to go places and paranoid ideas. Unfortunately, after pt was brought to ED, her and HCP unexpectedly at home. Her brother, Adam ([phone]) who is very familiar with her situation, can be her new HCP and pt does show understanding/capacity to appoint HCP. She continues to present with some paranoid delusions, AH. May consider switching abilify to risperidone as it may be more effective in targeting symptoms. PLAN 5/6 BP has lowered since admission, will check ortho VS. Will increase risperidone at bedtime 1mg po qhs and continue risperidone 0.5mg po BID at 8am and 1500. No behavioral concerns. updated brother of medication changes. 08/14 continue tx. 08/15 continue tx. 08/16 continue tx. 08/17 continue tx. 08/19/2023 Continue Risperdal patient continues to have some auditory hallucinations less intrusive 08/20/2023 Continue plan of care 08/20 continue tx. 08/21 continue tx. 08/22 increase risperidone 1mg po daily and 2mg po qhs. 08/23 continue tx. 08/24 ordered UA- episode of incontinence, plus pt reports burning while urinating. continue all other meds. 08/25: Continue current treatment and plan. 08/30: Continue current regimen and plans 08/31 continue tx. 09/01: continue current management and treatment plan. 09/02: continue current management and treatment plan. Reason for continued inpatient stay Substantial Risk for: inability to function and rapid decompensation Time Spent With Patient Time: Total time managing care of this patient today ____ minutes.
[2023-09-03 19:44] VITALS: BP 133/67; PULSE 52; RESP 16; TEMP 36.1; O2SAT 99
[2023-09-03] MEDS: risperiDONE 2 MG TABLET PO (20:08)
[2023-09-03] MEDS: Mirtazapine 15 MG TABLET PO (20:08)
[2023-09-03] MEDS: traZODone HCL 50 MG TABLET PO (20:08)
[2023-09-04 08:00] VITALS: BP 113/57; PULSE 61; RESP 16; TEMP 36.1; O2SAT 96
[2023-09-04 08:12] VITALS: BP 113/57
[2023-09-04] MEDS: risperiDONE 1 MG TABLET PO (08:12)
[2023-09-04] MEDS: lisinopriL 5 MG TABLET PO (08:12)
[2023-09-04] MEDS: Apixaban 5 MG TABLET PO ×2 (08:12→21:02)
[2023-09-04] MEDS: Spironolactone 25 MG TABLET PO (08:12)
[2023-09-04] MEDS: Sotalol HCL 80 MG TABLET PO (08:12)
--- NOTE | 2023-09-04 10:58 | P.PNPSI_ITS ---
Subjective Subjective Date of Service: 09/04/23 Reason For Visit: Unspecified anxiety disorder Interim History: Pt slept most of the night. She reports feeling good. Improved. Feels improved and ready to discharge. Says her brother will help her with the move and that some things of hers are already in the facility. She denies SI/HI. She denies physical concerns. Review of Systems Review of Systems Burning on urination Yes all other systems are reviewed and are negative Mental Status Exam Mental Status Exam Narrative: In today's visit she is alert, oriented to place and person and to sometime. Speech is soft-spoken. Little eye contact. Affect is constricted. No acute signs of psychosis but reports some auditory hallucinations. No overt delusions. No dangerous behaviors. Cognitively impaired. Judgment is impaired Patient Appearance: Appropriate Patient Orientation: Person Level of Consciousness: Awake Patient Behavior: Guarded and Cooperative Mood Description: Withdrawn Affect Description: Constricted Patient Cognition Impaired: Yes Ability to Follow Directions: Good Speech Pattern: Clear Diagnostics Vital Signs (24Hr): Vital Signs - 24 hr 09/03/23 19:44 09/04/23 08:00 09/04/23 08:12 Temperature 97 F 97.0 F Pulse Rate 52 61 Respiratory Rate 16 16 Blood Pressure 133/67 113/57 L 113/57 L Pulse Oximetry 99 96 Oxygen Delivery Method Room Air Room Air 09/04/23 08:12 Temperature Pulse Rate Respiratory Rate Blood Pressure 113/57 L Pulse Oximetry Oxygen Delivery Method BMI result Body Mass Index 39.2 Labs 08/05/23 08:03 Medications Medications Current Medications Acetaminophen (Acetaminophen 325 Mg Tablet) 650 mg PO Q6H PRN PRN Reason: Headache/Pain Mild Scale (1-3) Last Admin: 08/22/23 08:50 Dose: 650 mg Al Hydroxide/Mg Hydroxide (Magnesium Hydrox/Alum Hydrox 30 Ml Oral.Susp) 30 ml PO Q6H PRN PRN Reason: Heartburn/Nausea Apixaban (Apixaban 5 Mg Tablet) 5 mg PO BID [facility] Last Admin: 09/04/23 08:12 Dose: 5 mg Lisinopril (Lisinopril 5 Mg Tablet) 5 mg PO DAILY [facility]; Protocol Last Admin: 09/04/23 08:12 Dose: 5 mg Magnesium Hydroxide (Milk Of Magnesia 30 Ml Oral.Susp) 30 ml PO DAILY PRN PRN Reason: Constipation Last Admin: 08/24/23 09:07 Dose: 30 ml Mirtazapine (Mirtazapine 15 Mg Tablet) 15 mg PO BEDTIME [facility] Last Admin: 09/03/23 20:08 Dose: 15 mg Risperidone (Risperidone 1 Mg Tablet) 1 mg PO DAILY [facility] Last Admin: 09/04/23 08:12 Dose: 1 mg Risperidone (Risperidone 2 Mg Tablet) 2 mg PO BEDTIME [facility] Last Admin: 09/03/23 20:08 Dose: 2 mg Sotalol HCl (Sotalol Hcl 80 Mg Tablet) 80 mg PO DAILY@0800 [facility] Last Admin: 09/04/23 08:12 Dose: 80 mg Spironolactone (Spironolactone 25 Mg Tablet) 25 mg PO DAILY [facility]; Protocol Last Admin: 09/04/23 08:12 Dose: 25 mg Trazodone HCl (Trazodone Hcl 50 Mg Tablet) 50 mg PO BEDTIME MRX1 PRN PRN Reason: Insomnia Last Admin: 09/03/23 20:08 Dose: 50 mg Allergies Allergies Allergy/AdvReac Type Severity Reaction Status Date / Time latex AdvReac Unknown Verified 08/04/23 17:51 levofloxacin AdvReac Unknown Verified 08/04/23 17:51 Sulfa (Sulfonamide AdvReac Unknown Verified 08/04/23 17:51 Antibiotics) Assessment & Plan Assessment & Plan (1) Major neurocognitive disorder: Status: Acute Code(s): F03.90 - Unspecified dementia, unspecified severity, without behavioral disturbance, psychotic disturbance, mood disturbance, and anxiety Plan Mrs. Haddad is a 77 year-old woman with dementia, appears alzheimer's type or mixed etiology. Pt was brought to [facility] ED due to increase visual and auditory hallucinatinos of woman telling her to go places and paranoid ideas. Unfortunately, after pt was brought to ED, her and HCP unexpectedly at home. Her brother, Adam ([phone]) who is very familiar with her situation, can be her new HCP and pt does show understanding/capacity to appoint HCP. She continues to present with some paranoid delusions, AH. May consider switching abilify to risperidone as it may be more effective in targeting symptoms. PLAN 5/6 BP has lowered since admission, will check ortho VS. Will increase risperidone at bedtime 1mg po qhs and continue risperidone 0.5mg po BID at 8am and 1500. No behavioral concerns. updated brother of medication changes. 08/14 continue tx. 08/15 continue tx. 08/16 continue tx. 08/17 continue tx. 08/19/2023 Continue Risperdal patient continues to have some auditory hallucinations less intrusive 08/20/2023 Continue plan of care 08/20 continue tx. 08/21 continue tx. 08/22 increase risperidone 1mg po daily and 2mg po qhs. 08/23 continue tx. 08/24 ordered UA- episode of incontinence, plus pt reports burning while urinating. continue all other meds. 08/25: Continue current treatment and plan. 08/30: Continue current regimen and plans 08/31 continue tx. 09/01: continue current management and treatment plan. 09/02: continue current management and treatment plan. 09/03: continue current management and treatment plan. Reason for continued inpatient stay Substantial Risk for: inability to function and rapid decompensation Time Spent With Patient Time: Total time managing care of this patient today ____ minutes.
--- NOTE | 2023-09-04 13:46 | PC.NURSE ---
Patient's brother Adam was given patient's black cell phone and director pharmaceutical today from her belongings to charge with her permission.
[2023-09-04 20:00] VITALS: BP 136/65; PULSE 52; RESP 16; TEMP 36.6; O2SAT 97
[2023-09-04] MEDS: risperiDONE 2 MG TABLET PO (21:03)
[2023-09-04] MEDS: traZODone HCL 50 MG TABLET PO (21:03)
[2023-09-04] MEDS: Mirtazapine 15 MG TABLET PO (21:03)
[2023-09-05 08:00] VITALS: BP 145/65; PULSE 61; RESP 16; TEMP 36.2; O2SAT 97
[2023-09-05 08:04] VITALS: BP 145/65
[2023-09-05] MEDS: Apixaban 5 MG TABLET PO (08:04)
[2023-09-05] MEDS: Spironolactone 25 MG TABLET PO (08:04)
[2023-09-05 08:05] VITALS: BP 145/65
[2023-09-05] MEDS: Sotalol HCL 80 MG TABLET PO (08:05)
[2023-09-05] MEDS: lisinopriL 5 MG TABLET PO (08:05)
[2023-09-05] MEDS: risperiDONE 1 MG TABLET PO (08:05)
--- NOTE | 2023-09-05 09:25 | PM.PSYDC ---
DS: Providers Provider Date of Service: 09/05/23 Date of admission: 08/04/23 17:44 Date of discharge: 09/05/23 Primary care physician: Unknown Physician Consults: 08/04/23 19:21 Consult to Hospitalist Routine Comment: Consulting Provider: Hospitalist Reason For Exam: medical H&P 08/26/23 10:19 Consult to Hospitalist Routine Comment: Consulting Provider: Hospitalist Reason For Exam: UTI. Treatment recommendation Discharging clinician: Jaci Zavala DS: Diagnosis Discharge Diagnosis (1) Major neurocognitive disorder: Status: Acute DS: Medications Discharge Medications Home Medications: Previous Rx's ?Medication ?Instructions ?Recorded apixaban 5 mg tablet (Eliquis) 5 mg PO BID #60 tabs 08/29/23 lisinopril 5 mg tablet 5 mg PO DAILY #30 tabs 08/29/23 mirtazapine 15 mg tablet 15 mg PO BEDTIME #30 tabs 08/29/23 risperidone 1 mg tablet 1 mg PO DAILY #30 tabs 08/29/23 risperidone 2 mg tablet 2 mg PO BEDTIME #30 tabs 08/29/23 sotalol 80 mg tablet 80 mg PO DAILY@0800 #30 tabs 08/29/23 spironolactone 25 mg tablet 25 mg PO DAILY #30 tabs 08/29/23 trazodone 50 mg tablet 50 mg PO BEDTIME Insomnia #30 tabs 09/05/23 Mental Status Exam Mental Status Exam Narrative: Appearance: wearing casual clothing, good hygiene, in NAD Behavior: cooperative and pleasant Psychomotor: no agitation or retardation noted Speech: clear, normal rate/rhythm/volume, spontaneous TP: mostly linear TC: looking forward to move o new LTC Mood: okay Affect: congruent, appropriately tearful when talking about her SI: denies HI: denies VH/AH: less AH Delusions: much less persecutory delusions Insight/judgment: impaired x 2. memory/cog: alert, oriented to place, month, year, not so much situation. MOCA on 08/08/23 most impairments in executive function, language fluency, abstraction, attention, language repetition. Data Data Completed and Pending Completed studies during hospitalization [Text1]: 08/25/23 Unknown Urine clean catch - Clean Catch Midstream Urine Culture - Final DS: Summary Hospital Course Hospital Course: Mr. Haddad is a 77 year-old woman with hx of dementia who was brought in by her and brother to [facility] ED due to increase auditory hallucinations and paranoid ideas. In the ED, CBC was mostly unremarkable, CMP without electrolytes abnormalities, BUN 15, Cr 1.05, creatinine clearance 55. UA did not show signs of infection. Utox was negative. Head CT without acute pathology, but does now atrophy and microvascular changes. Unfortunately, after pt was brought to ED, her unexpectedly. Per [facility] records, they had completed new HCP form naming her brother, Adam ([phone]) but this form is not in her records (pt does appear to have capacity to name new HCP). During admission to [facility], pt was started on abilify 2mg po daily. On the unit, pt present as pleasant. She is tearful about recent and unexpected of her with whom she had been for over 20 years. Pt reports she has been dx with dementia for some years. She is not sure initially why she was brought to [facility]. She denies any physical pain. She is not sure about the month or the year. She denies SI/HI. She does report that at home she was hearing the voice of a woman who was telling her that she was going to hurt her and others and that she had to go places. She reports sleeping well. She reports good appetite. HOSPITAL COURSE On the unit, pt was admitted on a CV and placed on 15 minutes checks for safety. HCP was invoked due to underlying cognitive/memory impairments. Pt presented with combination of visual/auditory and persecutory delusions. She had been started on abilify at [facility] ED. Abilify was switched to risperidone to better manage psychosis and delusions. She was also started on remeron for mood and sleep. She did take at times prn trazodone. Outpatient can try increasing remeron and maybe considering discontinuing trazodone. Pt presented as much calmer, less paranoid, less reports of hearing voices. She believed this was happening including someone was trying to kidnap her and wrongly accused her of hurting a baby. She was very pleasant on approach. There were never incidences of disruptive behaviors nor need for restraints. She was sleeping well. There was increased in persecutory delusions in the evening. Her orientation to place, month and year was mostly intact but not so much her orientation to situation. She struggled retaining information about her treatment but did remember that plan was to move to [facility]. Mrs. Haddad tolerated risperidone well. She did not jeremi s/s of EPS or cogwheel or rigidity. Family meeting was held with her brother to discuss progress, treatment plan and dispo. Status at Discharge Cognitive/behavioral status at discharge: Pt with bright, no labile affect. Pt is very pleasant and kind. Much less paranoid and persecutory delusions, but some residual symptoms continued. No aggression towards self or others. No SI/HI. Pt sleeping and eating well. Functional status at discharge: independent ambulation Overall status at discharge: patient is back to baseline Time Spent with Patient Time attestation: Total time managing care of this patient today __35__ minutes. Time spent: Greater than 30 minutes Discharge Plan Discharge Anticipated Discharge Date/Time: 09/05/23 09:21 Patient Disposition: Home, Self-Care Discharge Diagnosis: Major Neurocognitive Disorder Referrals: [facility] [Other] - 09/05/23 11:00 am (Patient to transfer to [facility] and see primary care provider at Assisted Living. ) Discharge Medications: New Eliquis 5 mg Tablet 5 mg PO BID Qty: 60 0RF sotalol 80 mg Tablet 80 mg PO DAILY@0800 Qty: 30 0RF spironolactone 25 mg Tablet 25 mg PO DAILY Qty: 30 0RF Protocol: Hold for SBP< HOLD for SBP < : 90 risperidone 2 mg Tablet 2 mg PO BEDTIME Qty: 30 0RF lisinopril 5 mg Tablet 5 mg PO DAILY Qty: 30 0RF Protocol: Hold for SBP< HOLD for SBP < : 90 mirtazapine 15 mg Tablet 15 mg PO BEDTIME Qty: 30 0RF risperidone 1 mg Tablet 1 mg PO DAILY Qty: 30 0RF trazodone 50 mg Tablet 50 mg PO BEDTIME Qty: 30 0RF Discontinued Abilify 2 mg tablet 2 mg PO 1XD Rx Instructions: bedtime paroxetine HCl 10 mg tablet 10 mg PO DAILY sotalol 80 mg tablet 80 mg PO DAILY spironolactone 25 mg tablet 25 mg PO DAILY lisinopril 5 mg tablet 5 mg PO DAILY Eliquis 5 mg tablet 5 mg PO BID Discharge Orders: Discharge Order (Routine); Ordered 09/05/23 Ordered By: Jaci Zavala Diet: Regular diet Activity on Discharge: As tolerated Stand Alone Forms: Patient Portal Discharge page Print Language: Vietnamese Care Plan Goals: 1. Maintain mood 2. No SI/HI. 3. Less VH/AH. Less paranoia Health Concerns: Follow up with PCP Plan of Treatment: take medications as prescribed go to nearest ED or call 911 in event of emergency Assessment: Pt with bright, non labile. No SI/HI. No aggression towards self or others. Sleeping and eating well.
== END 2023-09-05 11:05 | disposition home or self-care (01) | DRG 885 ==
PROVIDERS: Social Worker; Admitting Provider Psychiatry & Neurology Psychiatry; Visit Provider Psychiatry & Neurology Psychiatry
DX: F39 Unspecified mood [affective] disorder (principal); G30.9 Alzheimer's disease, unspecified; I48.0 Paroxysmal atrial fibrillation; I10 Essential (primary) hypertension; R00.1 Bradycardia, unspecified; R07.9 Chest pain, unspecified; F02.80 Dementia in other diseases classified elsewhere, unspecified severity, without behavioral disturbance, psychotic disturbance, mood disturbance, and anxiety; G89.29 Other chronic pain; Z63.4 Disappearance and death of family member; Z91.040 Latex allergy status; Z79.01 Long term (current) use of anticoagulants; Z79.899 Other long term (current) drug therapy
CPT/HCPCS: 36415; 80053; 80061; 81001; 82565; 82607; 82746; 83036; 84443; 84484; 87086; 93005

== ENCOUNTER 2023-08-04 17:44 | Outpatient (BNV) | payer MEDICARE, OTHER, SELFPAY | END 2023-08-09 15:16 | PROVIDERS: Admitting Provider Psychiatry & Neurology Psychiatry; Visit Provider Internal Medicine | DX: R00.1 Bradycardia, unspecified (principal) | CPT/HCPCS: 93010 ==

== ENCOUNTER 2023-08-04 17:44 | Outpatient (BNV) | payer MEDICARE, OTHER, SELFPAY | END 2023-08-14 22:56 | PROVIDERS: Admitting Provider Psychiatry & Neurology Psychiatry; Visit Provider Internal Medicine Cardiovascular Disease | DX: I49.3 Ventricular premature depolarization (principal) | CPT/HCPCS: 93010 ==

== ENCOUNTER → 2023-08-04 17:44 | Outpatient (BNV) | payer MEDICARE, OTHER, SELFPAY | PROVIDERS: Admitting Provider Psychiatry & Neurology Psychiatry; Visit Provider Social Worker | DX: F03.90 Unspecified dementia, unspecified severity, without behavioral disturbance, psychotic disturbance, mood disturbance, and anxiety (principal) | CPT/HCPCS: 90792; 99231; 99232; 99239 ==

== ENCOUNTER → 2023-08-04 17:44 | Outpatient (BNV) | payer MEDICARE, OTHER, SELFPAY | PROVIDERS: Admitting Provider Psychiatry & Neurology Psychiatry; Visit Provider Physician Assistant | DX: Z02.2 Encounter for examination for admission to residential institution (principal) | CPT/HCPCS: 99429; 99499 ==

== ENCOUNTER → 2023-08-04 17:44 | Outpatient (BNV) | payer MEDICARE, OTHER, SELFPAY | PROVIDERS: Admitting Provider Psychiatry & Neurology Psychiatry; Visit Provider Psychiatry & Neurology Psychiatry | DX: F03.90 Unspecified dementia, unspecified severity, without behavioral disturbance, psychotic disturbance, mood disturbance, and anxiety (principal) | CPT/HCPCS: 99231 ==

== ENCOUNTER 2023-09-13 10:11 | Outpatient (REF) | payer MEDICARE, OTHER, SELFPAY ==
--- NOTE | ~2023-09-13 | US_ITS ---
EXAMINATION: US VENOUS ULTRASOUND WITH DOPPLER LOWER EXTREMITY, BILATERAL CLINICAL INFORMATION: Pain. COMPARISON: None available. TECHNIQUE: Ultrasound of the deep veins is performed from the hip to the calf with compression sonography and color and pulse Doppler assessment. Spectral analysis with color-flow imaging is performed. FINDINGS: RIGHT: There is normal venous compression and respiratory variation and augmented flow. The visualized common femoral vein, superficial femoral vein, profunda femoral vein, popliteal vein, and the trifurcation region shows no evidence of deep venous thrombosis. There is no significant popliteal fossa cyst. LEFT: There is normal venous compression and respiratory variation and augmented flow. The visualized common femoral vein, superficial femoral vein, profunda femoral vein, popliteal vein, and the trifurcation region shows no evidence of deep venous thrombosis. There is no significant popliteal fossa cyst. US/US venous duplex LE IMPRESSION: No DVT demonstrated in the bilateral lower extremities. If the patient's symptoms persist, followup ultrasound in 5 days 7 days might be of value to exclude proximal propagation from a non-visualized calf vein.
== END 2023-09-13 10:12 | disposition home or self-care (01) ==
LOC: HO.US 10:11
PROVIDERS: Visit Provider Internal Medicine
DX: R60.0 Localized edema (principal); M79.604 Pain in right leg; M79.605 Pain in left leg
CPT/HCPCS: 93970